=== PATIENT | male | born 1955 | race Caucasian/White ===

== ENCOUNTER 2016-07-07 12:57 | Emergency (ER) | payer MEDICARE ==
[~2016-07-07] VITALS: Ht 195.6 cm; Wt 131.5 kg
[2016-07-07] MEDS ORDERED: IV NORMAL SALINE 1000ML BAG 1,000 ML IV SCH (13:23)
[2016-07-07] MEDS ORDERED: LOSA50TA6 PO (13:25)
[2016-07-07] MEDS ORDERED: ALPR1TAB2 PO (13:25)
[2016-07-07] MEDS ORDERED: FENO145T2 PO (13:25)
[2016-07-07] MEDS ORDERED: BUPR1FIL SL (13:25)
[2016-07-07] MEDS ORDERED: CLOP75TA PO (13:25)
[2016-07-07] MEDS ORDERED: DESV50TA PO (13:25)
[2016-07-07] MEDS ORDERED: NIFE90TA PO (13:25)
[2016-07-07] MEDS ORDERED: SIMV40TA3 PO (13:25)
[2016-07-07] MEDS ORDERED: 0.9 % SODIUM CHLORIDE 10 ML DISP.SYRIN. IV PRN (13:30)
[2016-07-07] MEDS ORDERED: ONDANSETRON PF 4 MG/2 ML VIAL. IV ONE (13:30)
[2016-07-07 13:37] LABS: BILIRUBIN,URINE NEGATIVE (NEG); GLUCOSE,URINE NEGATIVE (NEG); NITRITE,URINE NEGATIVE (NEG); PH,URINE 6.5; PROTEIN,URINE 30 mg/dL (NEG-TRACE); UROBILINOGEN,URINE 0.2 mg/dL (0.2 mg/dL)
[2016-07-07 13:41] LABS: BASO # 0.1 x10^3/uL (0.0-0.2); BASO % 1 % (0-3); EOS % 1 % (0-3); HEMATOCRIT 44.5 % (39.0-53.0); HEMOGLOBIN 15.4 g/dL (13.0-17.5); LYMPH # 0.9 x10^3/uL (1.0-4.8); LYMPH % 15 % (24-48); MEAN CORPUSCULAR HEMOGLOBIN 31 pg (25-35); MEAN CORPUSCULAR HGB CONC 35 g/dL (31-37); MEAN CORPUSCULAR VOLUME 90 fL (79-100); MONO % 5 % (0-9); NEUT % 78 % (31-73); PLATELET COUNT 268 x10^3/uL (140-400); RED BLOOD COUNT 4.94 x10^6/uL (4.30-5.70); RED CELL DISTRIBUTION WIDTH 13.6 % (11.5-14.5); WHITE BLOOD COUNT 5.9 x10^3/uL (4.0-11.0)
[2016-07-07 13:49] LABS: BACTERIA,URINE 0 /HPF (0-FEW); RBC,URINE OCC /HPF (0-2)
[2016-07-07 13:51] LABS: CALCIUM 9.5 mg/dL (8.5-10.1); CREATININE 1.1 mg/dL (0.7-1.3); GFR 68.3; POTASSIUM 3.6 mmol/L (3.5-5.1)
--- NOTE | 2016-07-07 13:54 | PHYS DOC ---
Past Medical History Past Medical History: Anxiety, CAD, High Cholesterol, Hypertension Past Surgical History: Hip Replacement, Tonsillectomy, Other Additional Past Surgical Histo: cardiac cath with stents, bilat carotid endarterectomy with stent Alcohol Use: Heavy Additional Information: drinks 2-3 martini or vodka drinks daily Drug Use: None Adult General Chief Complaint Chief Complaint: ABDOMINAL PAIN HPI HPI Patient is a pleasant 60-year-old male with history of hypertension, hyperlipidemia and known coronary artery disease with prior endarterectomy 2 who presents with right lower quadrant pain is been going on for 4 weeks. He came in today because after taking a couple coughing he had a significant episode of nausea with retching no vomiting no diarrhea no constipation fevers chills UTI symptoms but the pain in his right lower abdomen got progressively worse. He's never had anything quite like this before. No. He was seen by his internal medicine physician Dr. JOSELO REDDING earlier this month and cleared by cardiology. He's not had any trauma, denies any recent travel outside the country, recent robotic use. Patient says the pain is worse with wall movement of his abdomen. He does not complain of any change with food or aliments. He denies any fevers or chills this time. He also denies any sick contacts. Pain is described as a dull ache throbbing deeper in the tissues that is not moving. It is not radiating to his back chest or shoulders. Review of Systems Review of Systems Constitutional: Denies fever or chills [] Eyes: Denies change in visual acuity, redness, or eye pain [] HENT: Denies nasal congestion or sore throat [] Respiratory: Denies cough or shortness of breath [] Cardiovascular: No additional information not addressed in HPI [] GI: Complains of of nausea and abdominal pain and retching without diarrhea or constipation. : Denies dysuria or hematuria [] Musculoskeletal: Denies back pain or joint pain [] Integument: Denies rash or skin lesions [] Neurologic: Denies headache, focal weakness or sensory changes [] Endocrine: Denies polyuria or polydipsia [] Current Medications Current Medications Current Medications Medications (Trade) Dose Ordered Sig/Nicolás Start Time Stop Time Status Last Admin Dose Admin Hydromorphone HCl (Dilaudid) 1 mg PRN Q15MIN PRN 07/07/16 13:30 07/08/16 13:29 07/07/16 14:01 1 MG Info (Do NOT chart on this entry -- for MONITORING) 1 each PRN DAILY PRN 07/07/16 14:15 07/09/16 14:14 Iohexol (Omnipaque 300 Mg/ml) 75 ml 1X ONCE 07/07/16 14:00 07/07/16 14:02 DC 07/07/16 14:05 75 ML Ondansetron HCl (Zofran) 4 mg 1X ONCE 07/07/16 13:30 07/07/16 13:31 DC 07/07/16 14:00 4 MG Sodium Chloride (Normal Saline Flush) 10 ml QSHIFT PRN 07/07/16 13:30 07/07/16 14:01 10 ML Allergies Allergies Allergies Coded Allergies Type Severity Reaction Last Updated Verified No Known Drug Allergies 07/07/16 No Physical Exam Physical Exam Constitutional: Well developed, well nourished, no acute distress, non-toxic appearance. [] HENT: Normocephalic, atraumatic, bilateral external ears normal, oropharynx moist, no oral exudates, nose normal. [] Eyes: PERRLA, EOMI, conjunctiva normal, no discharge. [] Neck: Normal range of motion, no tenderness, supple, no stridor. [] Cardiovascular:Heart rate regular rhythm, no murmur [] Lungs & Thorax: Bilateral breath sounds clear to auscultation [] Abdomen: Patient has marked tenderness to right lower quadrant with voluntary guarding no rebound or organomegaly. There is no pulsatile mass normal active bowel sounds. Skin: Warm, dry, no erythema, no rash. [] Extremities: No tenderness, no cyanosis, no clubbing, ROM intact, no edema. [] Neurologic: Alert and oriented X 3, normal motor function, normal sensory function, no focal deficits noted. [] Psychologic: Affect normal, judgement normal, mood normal. [] Current Patient Data Vital Signs Vital Signs Date Time Temp Pulse Resp B/P (MAP) Pulse Ox O2 Delivery O2 Flow Rate FiO2 07/07/16 14:01 Room Air 07/07/16 13:11 98.8 95 12 170/100 (123) 96 98.8 Lab Values Laboratory Tests Test 07/07/16 13:14 07/07/16 13:25 Urine Collection Type Unknown Urine Color Deloris Urine Clarity Clear Urine pH 6.5 Urine Specific [place] 1.020 Urine Protein 30 mg/dL (NEG-TRACE) Urine Glucose (UA) Negative mg/dL (NEG) Urine Ketones (Stick) Trace mg/dL (NEG) Urine Blood Negative (NEG) Urine Nitrite Negative (NEG) Urine Bilirubin Negative (NEG) Urine Urobilinogen Dipstick 0.2 mg/dL (0.2 mg/dL) Urine Leukocyte Esterase Negative (NEG) Urine RBC Occ /HPF (0-2) Urine WBC 5-10 /HPF (0-4) Urine Bacteria 0 /HPF (0-FEW) Urine Hyaline Casts Many /HPF Urine Mucus Marked /LPF White Blood Count 5.9 x10^3/uL (4.0-11.0) Red Blood Count 4.94 x10^6/uL (4.30-5.70) Hemoglobin 15.4 g/dL (13.0-17.5) Hematocrit 44.5 % (39.0-53.0) Mean Corpuscular Volume 90 fL (79-100) Mean Corpuscular Hemoglobin 31 pg (25-35) Mean Corpuscular Hemoglobin Concent 35 g/dL (31-37) Red Cell Distribution Width 13.6 % (11.5-14.5) Platelet Count 268 x10^3/uL (140-400) Neutrophils (%) (Auto) 78 % (31-73) H Lymphocytes (%) (Auto) 15 % (24-48) L Monocytes (%) (Auto) 5 % (0-9) Eosinophils (%) (Auto) 1 % (0-3) Basophils (%) (Auto) 1 % (0-3) Neutrophils # (Auto) 4.6 x10^3uL (1.8-7.7) Lymphocytes # (Auto) 0.9 x10^3/uL (1.0-4.8) L Monocytes # (Auto) 0.3 x10^3/uL (0.0-1.1) Eosinophils # (Auto) 0.0 x10^3/uL (0.0-0.7) Basophils # (Auto) 0.1 x10^3/uL (0.0-0.2) Sodium Level 139 mmol/L (136-145) Potassium Level 3.6 mmol/L (3.5-5.1) Chloride Level 101 mmol/L (98-107) Carbon Dioxide Level 28 mmol/L (21-32) Anion Gap 10 (6-14) Blood Urea Nitrogen 10 mg/dL (8-26) Creatinine 1.1 mg/dL (0.7-1.3) Estimated GFR (Cockcroft-Gault) 68.3 BUN/Creatinine Ratio 9 (6-20) Glucose Level 119 mg/dL (70-99) H Calcium Level 9.5 mg/dL (8.5-10.1) Total Bilirubin 0.8 mg/dL (0.2-1.0) Aspartate Amino Transferase (AST) 36 U/L (15-37) Alanine Aminotransferase (ALT) 50 U/L (16-63) Alkaline Phosphatase 86 U/L (46-116) Creatine Kinase 156 U/L (39-308) Creatine Kinase MB (Mass) 0.8 ng/mL (0.0-3.6) Creatine Kinase MB Relative Index 0.5 % (0-4) Troponin I Quantitative < 0.017 ng/mL (0.000-0.055) Total Protein 8.1 g/dL (6.4-8.2) Albumin 4.3 g/dL (3.4-5.0) Albumin/Globulin Ratio 1.1 (1.0-1.7) Lipase 80 U/L (73-393) Laboratory Tests 07/07/16 13:25 Laboratory Tests 07/07/16 13:25 EKG EKG KG timed 3:29 PM temperatures heart rate of 83 normal sinus rhythm with a prolonged SC interval of 214 first degree AV block noted. There is also evidence of a) right frontal RR prime in V1 and V2. Patient has abnormal EKG with T-wave inversions laterally and inferiorly consistent with old ischemia. [] Radiology/Procedures Radiology/Procedures [] [address] [place] [address] IMAGING REPORT Signed PATIENT: ROSEMARIE PRASAD ACCOUNT: [id number] : 1955 LOCATION: ER AGE: 60 SEX: M EXAM STATUS: REG ER ORD. PHYSICIAN: LEI LINARES MD REASON: rlq ab pain PROCEDURE: CT ABD PELV W/ IV CONTRST ONLY CT abdomen and pelvis with IV contrast History: Right lower quadrant pain. Comparison: None. Technique: After administration of intravenous contrast, 75 mL Omnipaque 300, helical CT of the abdomen and pelvis was performed from the lung bases through the ischial tuberosities. Axial, sagittal, and coronal reconstructions were obtained. One or more of the following individualized dose reduction techniques were utilized for the study: Automated exposure control Adjustment of mA and/or kV according to patient's size Use of iterative reconstruction technique. Findings: Evaluation of enteric structures may be limited by lack of oral contrast. There is also streak artifact emanating from patient's bilateral hip arthroplasties, limiting evaluation lower pelvis. Fatty liver disease is seen. Spleen, pancreas, gallbladder, and bilateral adrenal glands are unremarkable. Bilateral kidneys enhance symmetrically. There is no evidence of bowel obstruction. No free air or free fluid is identified in the abdomen or pelvis. Appendix appears within normal limits. Urinary bladder is unremarkable. Colonic diverticulosis is noted, but no diverticulitis is appreciated. Infrarenal abdominal aortic aneurysm is seen. At maximum axial size, AP dimension is 3.7 cm and transverse dimension is 3.4 cm. Calcified and noncalcified atherosclerotic plaquing is seen involving the aorta and iliac vessels. Impression: 1. No acute abnormality identified in the abdomen or pelvis. 2. Infrarenal abdominal aortic aneurysm measuring 3.7 cm in AP dimension x 3.4 cm in transverse dimension. DICTATED and SIGNED BY: JAVIER GRAMAJO MD DATE: 07/07/16 2295 CC: LEI LINARES MD; NEIDA GOMEZ MD ~ Course & Med Decision Making Course & Med Decision Making Pertinent Labs and Imaging studies reviewed. (See chart for details) the patient 's nursing notes, vital signs and physical exam as well as history patient with chronic abdominal pain the right lower quadrant with no obvious signs of appendicitis today no white count elevated troponin CT abdomen and pelvis demonstrates no acute surgical issue going on the abdomen that would require intervention at this time. He does have an noted abdominal aneurysm measuring 3.7 cm at this time given the fact no chest pain this patient is aware of this particular finding and his prior history of CAD endarterectomy I will follow up with his vascular surgeon to watch this particular aneurysm. At this time patient be given the diagnosis of abdominal pain of unclear etiology. We'll have him follow-up with his primary care doctor referral back to the vascular surgeon given precautions. Impression abdominal pain unclear etiology, incidental abdominal aneurysm measuring 3.7 cm. disposition PCP follow-up next 12-24 hours with referral to vascular surgery. [] Dragon Disclaimer Dragon Disclaimer This electronic medical record was generated, in whole or in part, using a voice recognition dictation system. Departure Departure Impression: Primary Impression: Abdominal pain Additional Impressions: Abdominal aortic aneurysm (AAA) 3.0 cm to 5.5 cm in diameter in male Abdominal aortic aneurysm (AAA) without rupture Disposition: HOME, SELF-CARE Condition: IMPROVED Referrals: NEIDA GOMEZ MD (PCP) Patient Instructions: Abdominal Aortic Aneurysm, Abdominal Pain (Nonspecific) Additional Instructions: Please return for any new or increasing symptoms especially localized in the right lower quadrant. There is no obvious evidence of appendicitis at this time today given year duration of symptoms this does not mean that Develop in the future. I would advise a follow-up with her primary care doctor with referral to vascular surgery to watch her abdominal aneurysm although it small at 3.7 cm it is to be watched very carefully. Problem Qualifiers LEI LINARES MD July 07, 2016 13:54
[2016-07-07 13:57] LABS: ALBUMIN 4.3 g/dL (3.4-5.0); ALBUMIN/GLOBULIN RATIO 1.1 (1.0-1.7); TOTAL BILIRUBIN 0.8 mg/dL (0.2-1.0); TOTAL PROTEIN 8.1 g/dL (6.4-8.2)
--- NOTE | 2016-07-07 13:57 | EKG ---
[facility] [address] [place] [address] Test Date: 2016-07-07 Test Time: 13:29:29 Pat Name: ROSEMARIE PRASAD Department: Room: Gender: M [employer]: : 1955 Requested By: LEI LINARES Order Number: [id number] Reading MD: Slim Alcocer Measurements Intervals [place] Rate: 83 P: 54 NE: 214 QRS: 74 QRSD: 100 T: 28 QT: 368 QTc: 433 Interpretive Statements SINUS RHYTHM PROLONGED NE INTERVAL NON-SPECIFIC ST/T CHANGES Electronically Signed On 07-11-2016 12:49:37 CDT by Slim Alcocer
[2016-07-07] MEDS ORDERED: IOHEXOL 300 MG/ML 75 ML VIAL IV ONE (14:00)
[2016-07-07] MEDS: HYDROmorphone 2 MG/ML VIAL IV/SQ PRN ×2 (14:01→15:19)
[2016-07-07 14:05] LABS: CKMB MASS 0.8 ng/mL (0.0-3.6)
[2016-07-07] MEDS ORDERED: CONTRAST GIVEN MC PRN (14:15)
--- NOTE | 2016-07-07 14:28 | RAD ---
CT abdomen and pelvis with IV contrast History: Right lower quadrant pain. Comparison: None. Technique: After administration of intravenous contrast, 75 mL Omnipaque 300, helical CT of the abdomen and pelvis was performed from the lung bases through the ischial tuberosities. Axial, sagittal, and coronal reconstructions were obtained. One or more of the following individualized dose reduction techniques were utilized for the study: Automated exposure control Adjustment of mA and/or kV according to patient's size Use of iterative reconstruction technique. Findings: Evaluation of enteric structures may be limited by lack of oral contrast. There is also streak artifact emanating from patient's bilateral hip arthroplasties, limiting evaluation lower pelvis. Fatty liver disease is seen. Spleen, pancreas, gallbladder, and bilateral adrenal glands are unremarkable. Bilateral kidneys enhance symmetrically. There is no evidence of bowel obstruction. No free air or free fluid is identified in the abdomen or pelvis. Appendix appears within normal limits. Urinary bladder is unremarkable. Colonic diverticulosis is noted, but no diverticulitis is appreciated. Infrarenal abdominal aortic aneurysm is seen. At maximum axial size, AP dimension is 3.7 cm and transverse dimension is 3.4 cm. Calcified and noncalcified atherosclerotic plaquing is seen involving the aorta and iliac vessels. Impression: 1. No acute abnormality identified in the abdomen or pelvis. 2. Infrarenal abdominal aortic aneurysm measuring 3.7 cm in AP dimension x 3.4 cm in transverse dimension.
[2016-07-07 15:03] VITALS: BP 181/90
== END 2016-07-07 15:28 | disposition home or self-care (01) ==
LOC: ER 12:57
DX: R10.31 Right lower quadrant pain (principal); I71.4 Abdominal aortic aneurysm, without rupture; R11.2 Nausea with vomiting, unspecified; F41.9 Anxiety disorder, unspecified; I25.10 Atherosclerotic heart disease of native coronary artery without angina pectoris; E78.00 Pure hypercholesterolemia, unspecified; I10 Essential (primary) hypertension; Z90.89 Acquired absence of other organs; Z95.1 Presence of aortocoronary bypass graft
CPT/HCPCS: 36415; 74177; 80053; 81001; 82553; 83690; 84484; 85027; 87086; 93005; 96361; 96374; 96375; 96376; 99285; J1170; J2405; J7030; Q9967

== ENCOUNTER → 2016-08-26 | Outpatient (CLI) | payer MEDICARE ==
[~2016-08-26] VITALS: Ht 195.6 cm; Wt 127.9 kg
[~2016-08-26] MED LIST: ALPR1TAB2 PO; BUPR1FIL SL; CLOP75TA PO; DESV50TA PO; FENO145T2 PO; LOSA50TA6 PO; NIFE90TA PO; NORMAL SALINE IV ONE; SIMV40TA3 PO; SINCALIDE IV ONE
--- NOTE | 2016-08-26 14:08 | RAD ---
Hepatobiliary scan 08/26/2016 Indication: Upper abdominal pain since May, Discussion: Imaging over the abdomen was performed following the administration of 5.5 mCi of technetium 99m labeled Choletec. After filling of the gallbladder 2.6 mcg of CCK was administered and imaging of the abdomen was continued. There is prompt clearance of radiotracer from the blood pool. Normal uptake within the liver and proximal biliary tree is noted. Normal filling of the gallbladder is noted. Following the administration of CCK radiotracer seen emptying into the biliary tree and small bowel. Gallbladder ejection fraction is measured at 50.3%. (Normal gallbladder ejection fraction is anything greater than 35%) Impression: No evidence of cholecystitis. Gallbladder ejection fraction is within normal limits.
== END ==
LOC: NM 11:41
PROVIDERS: ATTEND Physician Assistant
DX: R10.11 Right upper quadrant pain (principal)
CPT/HCPCS: 78226; 96374; 96375; A9537; J2805

== ENCOUNTER 2017-01-07 18:36 | Emergency (ER) | payer MEDICARE ==
[~2017-01-07] VITALS: Ht 195.6 cm; Wt 126.7 kg
[~2017-01-07 18:36] MED LIST changes: -NORMAL SALINE IV ONE; -SINCALIDE IV ONE
[2017-01-07] MEDS ORDERED: PIRO20CA2 PO (19:34)
[2017-01-07] MEDS ORDERED: METH-37 PO (19:34)
[2017-01-07] MEDS ORDERED: IV NORMAL SALINE 1000ML BAG 1,000 ML IV ONE (20:00)
[2017-01-07 20:11] LABS: BASO # 0.1 x10^3/uL (0.0-0.2); BASO % 1 % (0-3); EOS % 0 % (0-3); HEMATOCRIT 45.4 % (39.0-53.0); HEMOGLOBIN 15.2 g/dL (13.0-17.5); LYMPH # 0.9 x10^3/uL (1.0-4.8); LYMPH % 12 % (24-48); MEAN CORPUSCULAR HEMOGLOBIN 32 pg (25-35); MEAN CORPUSCULAR HGB CONC 34 g/dL (31-37); MEAN CORPUSCULAR VOLUME 94 fL (79-100); MONO % 6 % (0-9); NEUT % 80 % (31-73); PLATELET COUNT 272 x10^3/uL (140-400); RED BLOOD COUNT 4.82 x10^6/uL (4.30-5.70); RED CELL DISTRIBUTION WIDTH 13.7 % (11.5-14.5); WHITE BLOOD COUNT 7.6 x10^3/uL (4.0-11.0)
[2017-01-07] MEDS ORDERED: CONTRAST GIVEN MC PRN (20:15)
[2017-01-07] MEDS ORDERED: IOHEXOL 300 MG/ML 100ML VIAL. IV ONE (20:15)
[2017-01-07] MEDS: fentaNYL PF VIAL 100 MCG/2 ML VIAL IV PRN ×2 (20:18→21:31)
[2017-01-07 20:31] LABS: BILIRUBIN,URINE SMALL (NEG); GLUCOSE,URINE NEGATIVE (NEG); NITRITE,URINE NEGATIVE (NEG); PH,URINE 7.5; PROTEIN,URINE NEGATIVE (NEG-TRACE)
[2017-01-07 20:41] LABS: BACTERIA,URINE 0 /HPF (0-FEW); RBC,URINE OCC /HPF (0-2); SQUAMOUS EPITHELIAL CELL,UR FEW /LPF; WBC,URINE 0 /HPF (0-4)
[2017-01-07 20:53] LABS: CALCIUM 9.1 mg/dL (8.5-10.1); CREATININE 1.1 mg/dL (0.7-1.3); GFR 68.1; POTASSIUM 3.5 mmol/L (3.5-5.1)
[2017-01-07 21:00] LABS: ALBUMIN 4.3 g/dL (3.4-5.0); ALBUMIN/GLOBULIN RATIO 1.2 (1.0-1.7); TOTAL BILIRUBIN 0.7 mg/dL (0.2-1.0); TOTAL PROTEIN 7.8 g/dL (6.4-8.2)
--- NOTE | 2017-01-07 22:25 | RAD ---
CT maxillofacial with contrast History: Left jaw pain Axial helical images of the face orbits and mandible were obtained after administration of 70 mL of IV Omni 300 contrast. Axial, sagittal and coronal reconstruction was performed. The nasal septum is mostly midline. The ostiomeatal complexes are narrow but patent. The paranasal sinuses are clear. Irregularity of the nasal ala suggests old nasal bone fractures. The orbits appear normal. Impression: No acute findings. PQRS Compliance Statement: One or more of the following individualized dose reduction techniques were utilized for this examination: 1. Automated exposure control 2. Adjustment of the mA and/or kV according to patient size 3. Use of iterative reconstruction technique Electronically signed by: Aayush Rios III, MD (01/07/2017 10:22 PM) [facility]
[2017-01-08] MEDS ORDERED: fentaNYL PF VIAL 100 MCG/2 ML VIAL IV ONE (00:30)
[2017-01-08] MEDS ORDERED: HYDR-2758 PO (00:46)
--- NOTE | 2017-01-08 00:47 | PHYS DOC ---
Past Medical History Past Medical History: Anxiety, CAD, High Cholesterol, Hypertension, Other Additional Past Medical Histor: AAA (3.5cm) Past Surgical History: Hip Replacement, Tonsillectomy, Other Additional Past Surgical Histo: cardiac cath with stents, bilat carotid endarterectomy with stent Alcohol Use: Heavy Drug Use: None Adult General Chief Complaint Chief Complaint: DENTAL PROBLEM HPI HPI Patient is a 61 year old man, history of hypertension, remote history of drug and alcohol abuse, who presents to the emergency department with a complaint of left-sided jaw pain. Patient states that he had a root canal performed a few days after Thanksgiving, states that since that time he is experiencing increasing pain and spasm on the left side of his jaw, limiting his ability to open his mouth. He denies any fevers or chills, any swelling in the throat or mouth, any drainage in the mouth, any neck pain, headache, facial swelling. He states that he has spoken to both his meter engineer performing procedure, and was evaluated by status today. He states his meter engineer believe that "it may be a slipped disc inside the jaw joint". He was given Robaxin by his meter engineer, and today was given hydrocodone by his dentist which she states is not helping. Patient does take Xanax at home at baseline. He denies any other injuries, or complaints. No difficulties with swallowing or breathing or pain in the back or throat or mouth, states he simply cannot open his mouth any wider than one finger. He states it is getting worse, he states he spoke to his dentist who said that if he needed to come to the emergency department to be further evaluated to contact him via telephone. He did have x-rays performed today, he states that they did not see anything obvious on these films. Review of Systems Review of Systems Constitutional: Denies fever or chills [] Eyes: Denies change in visual acuity, redness, or eye pain [] HENT: Denies nasal congestion or sore throat []pain in the left jaw, difficult to the opening the mouth. Respiratory: Denies cough or shortness of breath [] Cardiovascular: No additional information not addressed in HPI [] GI: Denies abdominal pain, nausea, vomiting, bloody stools or diarrhea [] : Denies dysuria or hematuria [] Musculoskeletal: Denies back pain or joint pain [] Integument: Denies rash or skin lesions [] Neurologic: Denies headache, focal weakness or sensory changes [] Endocrine: Denies polyuria or polydipsia [] All other systems were reviewed and found to be within normal limits, except as documented in this note. Current Medications Current Medications Current Medications Medications (Trade) Dose Ordered Sig/Nicolás Start Time Stop Time Status Last Admin Dose Admin Diazepam (Valium) 5 mg 1X ONCE 01/07/17 21:45 01/07/17 21:46 DC 01/07/17 22:27 5 MG Fentanyl Citrate (Fentanyl 2ml Vial) 50 mcg 1X ONCE 01/08/17 00:30 01/08/17 00:31 DC 01/08/17 00:30 50 MCG Info (Do NOT chart on this entry -- for MONITORING) 1 each PRN DAILY PRN 01/07/17 20:15 01/08/17 02:22 DC Iohexol (Omnipaque 300 Mg/ml) 75 ml 1X ONCE 01/07/17 20:15 01/07/17 20:16 DC 01/07/17 09:55 75 ML Nifedipine (Procardia Xl) 90 mg ONCE ONCE 01/08/17 00:30 01/08/17 00:31 DC 01/08/17 00:41 90 MG Sodium Chloride 1,000 ml @ 1,000 mls/hr 1X ONCE 01/07/17 20:00 01/07/17 20:59 DC 01/07/17 20:15 1,000 MLS/HR Allergies Allergies Allergies Coded Allergies Type Severity Reaction Last Updated Verified No Known Drug Allergies 07/07/16 No Physical Exam Physical Exam Constitutional: Well developed, well nourished, no acute distress, non-toxic appearance. [] HENT: Normocephalic, atraumatic, bilateral external ears normal, oropharynx moist, no oral exudates, nose normal. [Patient is able to open his mouth about one finger width, visualized soft tissues are unremarkable, no evidence of abscess formation, induration, no tenderness along the palpable area of the jaw or gums when fingers extended into the mouth, visualized area of the oropharynx is clear.] Eyes: PERRLA, EOMI, conjunctiva normal, no discharge. [] Neck: Normal range of motion, no tenderness, supple, no stridor. [] Cardiovascular:Heart rate regular rhythm, no murmur , S1, S2, no rubs or gallops.[] Lungs & Thorax: Bilateral breath sounds clear to auscultation , no wheezing, rhonchi, rales. No chest wall crepitus or tenderness.[] Abdomen: Bowel sounds normal, soft, no tenderness, no masses, no pulsatile masses. [] Skin: Warm, dry, no erythema, no rash. [] Back: No tenderness, no CVA tenderness. [] Extremities: No tenderness, no cyanosis, no clubbing, ROM intact, no edema. [] Neurologic: Alert and oriented X 3, normal motor function, normal sensory function, no focal deficits noted. [] Psychologic: Affect normal, judgement normal, mood normal. [] Current Patient Data Vital Signs Vital Signs Date Time Temp Pulse Resp B/P (MAP) Pulse Ox O2 Delivery O2 Flow Rate FiO2 01/08/17 01:30 76 19 202/91 (128) 96 Room Air 01/07/17 19:18 98.2 98.2 Lab Values Laboratory Tests Test 01/07/17 18:10 01/07/17 20:00 Urine Collection Type Unknown Urine Color Dk yellow Urine Clarity Clear Urine pH 7.5 Urine Specific [place] >=1.030 Urine Protein Negative mg/dL (NEG-TRACE) Urine Glucose (UA) Negative mg/dL (NEG) Urine Ketones (Stick) Trace mg/dL (NEG) Urine Blood Negative (NEG) Urine Nitrite Negative (NEG) Urine Bilirubin Small (NEG) Urine Urobilinogen Dipstick 1.0 mg/dL (0.2 mg/dL) Urine Leukocyte Esterase Negative (NEG) Urine RBC Occ /HPF (0-2) Urine WBC 0 /HPF (0-4) Urine Squamous Epithelial Cells Few /LPF Urine Bacteria 0 /HPF (0-FEW) Urine Hyaline Casts Few /HPF Urine Mucus Mod /LPF White Blood Count 7.6 x10^3/uL (4.0-11.0) Red Blood Count 4.82 x10^6/uL (4.30-5.70) Hemoglobin 15.2 g/dL (13.0-17.5) Hematocrit 45.4 % (39.0-53.0) Mean Corpuscular Volume 94 fL (79-100) Mean Corpuscular Hemoglobin 32 pg (25-35) Mean Corpuscular Hemoglobin Concent 34 g/dL (31-37) Red Cell Distribution Width 13.7 % (11.5-14.5) Platelet Count 272 x10^3/uL (140-400) Neutrophils (%) (Auto) 80 % (31-73) H Lymphocytes (%) (Auto) 12 % (24-48) L Monocytes (%) (Auto) 6 % (0-9) Eosinophils (%) (Auto) 0 % (0-3) Basophils (%) (Auto) 1 % (0-3) Neutrophils # (Auto) 6.1 x10^3uL (1.8-7.7) Lymphocytes # (Auto) 0.9 x10^3/uL (1.0-4.8) L Monocytes # (Auto) 0.4 x10^3/uL (0.0-1.1) Eosinophils # (Auto) 0.0 x10^3/uL (0.0-0.7) Basophils # (Auto) 0.1 x10^3/uL (0.0-0.2) Sodium Level 142 mmol/L (136-145) Potassium Level 3.5 mmol/L (3.5-5.1) Chloride Level 104 mmol/L (98-107) Carbon Dioxide Level 25 mmol/L (21-32) Anion Gap 13 (6-14) Blood Urea Nitrogen 11 mg/dL (8-26) Creatinine 1.1 mg/dL (0.7-1.3) Estimated GFR (Cockcroft-Gault) 68.1 BUN/Creatinine Ratio 10 (6-20) Glucose Level 115 mg/dL (70-99) H Calcium Level 9.1 mg/dL (8.5-10.1) Total Bilirubin 0.7 mg/dL (0.2-1.0) Aspartate Amino Transferase (AST) 51 U/L (15-37) H Alanine Aminotransferase (ALT) 67 U/L (16-63) H Alkaline Phosphatase 73 U/L (46-116) Total Protein 7.8 g/dL (6.4-8.2) Albumin 4.3 g/dL (3.4-5.0) Albumin/Globulin Ratio 1.2 (1.0-1.7) Laboratory Tests 01/07/17 20:00 Laboratory Tests 01/07/17 20:00 EKG EKG Not indicated. Radiology/Procedures Radiology/Procedures [][facility] [address] [place], [place] [id number] IMAGING REPORT Signed PATIENT: ROSEMARIE PRASAD ACCOUNT: [id number] : 1955 LOCATION: ER AGE: 61 SEX: M EXAM STATUS: REG ER ORD. PHYSICIAN: ALEX BERMUDEZ DO REASON: L jaw pain/trismus status post root canal PROCEDURE: CT MAXILLOFACIAL W/CONTRAST CT maxillofacial with contrast History: Left jaw pain Axial helical images of the face orbits and mandible were obtained after administration of 70 mL of IV Omni 300 contrast. Axial, sagittal and coronal reconstruction was performed. The nasal septum is mostly midline. The ostiomeatal complexes are narrow but patent. The paranasal sinuses are clear. Irregularity of the nasal ala suggests old nasal bone fractures. The orbits appear normal. Impression: No acute findings. PQRS Compliance Statement: One or more of the following individualized dose reduction techniques were utilized for this examination: 1. Automated exposure control 2. Adjustment of the mA and/or kV according to patient size 3. Use of iterative reconstruction technique Electronically signed by: Lance Bourne III, MD (01/07/2017 10:22 PM) [facility] DICTATED and SIGNED BY: LANCE BOURNE III, MD DATE: 01/07/172213 CC: NEIDA GOMEZ MD; ALEX BERMUDEZ DO ~ Course & Med Decision Making Course & Med Decision Making Pertinent Labs and Imaging studies reviewed. (See chart for details) Patient without evidence of infection or other concerning findings examination, although he is unable to open his mouth more than one finger, normal speech and syntax is preserved without evidence of other concerning findings. However, based on patient's reports of pain and inability to open his mouth, with history of surgical intervention, CT of the maxillofacial with contrast obtained after discussion with patient of risk versus benefit. Patient also received laboratory studies, states he is having some difficulty with eating as concern is occasional status. Patient's laboratory studies not reveal any acutely concerning finding, we did have trace ketones noted in the urine, electrolytes and other findings were unremarkable, no evidence of infection noted and laboratory studies or imaging. No evidence of bony abnormality. Valium and fentanyl were stacker tender the patient in the ED, patient states he continues to have discomfort. Noted to have increasing blood pressure in the ED , is a history of hypertension, has not taken his home nifedipine, patient was ordered his evening dose of nifedipine, 90 mg in the ED. Patient denies any other symptoms or complaints at this time. I did attempt to speak with his dentist, Dr. Monique, messages were left, but is unable to reach him. I was able to speak to the patient's meter engineer, Dr. Sky, who states that he is evaluated the patient, and does not have additional recommendations at this time , he states continuing the anti-inflammatories, pain medication, and muscle relaxers as stated would be his only recommendations, also states that are thought of having the patient follow-up with oral maxillofacial surgeon would be beneficial this point as the patient has not responded to the other interventions. Patient awaiting additional pain medication, and his nifedipine at time of sign out to Dr. Vance, who accepted this patient for follow-up and disposition. Pharmacy called stating he is on Suboxone and was given [place] therefore I switched him to 50 mg every 8 hours of tramadol No. 8 and told not to fill his [place] tablets. Adavied 01/08/17 13:05 Anyi Disclaimer Anyi Disclaimer This electronic medical record was generated, in whole or in part, using a voice recognition dictation system. Departure Impression: Primary Impression: Jaw pain Additional Impressions: Trismus Hypertension Disposition: 01 HOME, SELF-CARE Condition: STABLE Referrals: NEIDA GOMEZ MD (PCP) NIMCO KEARNS DMD Patient Instructions: Jaw, Range of Motion Exercises, [id number] Additional Instructions: Thank you for allowing us to participate in your care today. Your blood pressure is elevated here in the emergency department today. You have received blood pressure medication here. Take your blood pressure medication as prescribed by your doctor and follow up with their primary care doctor tomorrow for chronic blood pressure management. I recommend he follow-up with your dentist tomorrow. It is likely that he might refer you to an oral maxillofacial surgeon or a specialist. I have given the contact information for Dr. Kearns in oral maxillofacial surgeon which he can follow-up with by make an appointment tomorrow or the next day. If for some reason you're unable to get into this doctor's office I recommend you return to the emergency department for transfer for oral maxillofacial surgery consultation. Call your Primary Doctor tomorrow and inform them of your visit today. If you do not have a primary care provider you can ask for a list of our primary care providers. Return to the emergency department you have any new or concerning findings. This should be evaluated by the primary care physician and any necessary consulting services for continued management within a few days after discharge. Return to emergency room if you have any new or concerning symptoms including but not limited to fever, chills, nausea, vomiting, intractable pain, any new rashes, chest pain, shortness of air, uncontrolled bleeding, difficulty breathing, and/or vision loss. You may have been prescribed medication that can change in your level of thinking and ability to operate machinery. These medications include hydrocodone and Ativan. Also, Benadryl has been known to do this as well. Be sure to check with your pharmacist and ask if the medications you've prescribed can affect your level of consciousness. I recommend not operating heavy machinery or driving while on medication such as these. Scripts Hydrocodone Bit/Acetaminophen (HYDROCODONE-APAP 5-325 ) 1 Each Tablet 1 TAB PO PRN Q8HRS Y for SEVERE PAIN, #8 TAB 0 Refills Prov: DUNG VANCE MD 01/08/17 Departure Departure Impression: Primary Impression: Jaw pain Additional Impressions: Trismus Hypertension Disposition: HOME, SELF-CARE Condition: STABLE Referrals: NEIDA GOMEZ MD (PCP) NIMCO KEARNS DMD Patient Instructions: Jaw, Range of Motion Exercises, [id number] Additional Instructions: Thank you for allowing us to participate in your care today. Your blood pressure is elevated here in the emergency department today. You have received blood pressure medication here. Take your blood pressure medication as prescribed by your doctor and follow up with their primary care doctor tomorrow for chronic blood pressure management. I recommend he follow-up with your dentist tomorrow. It is likely that he might refer you to an oral maxillofacial surgeon or a specialist. I have given the contact information for Dr. Kearns in oral maxillofacial surgeon which he can follow-up with by make an appointment tomorrow or the next day. If for some reason you're unable to get into this doctor's office I recommend you return to the emergency department for transfer for oral maxillofacial surgery consultation. Call your Primary Doctor tomorrow and inform them of your visit today. If you do not have a primary care provider you can ask for a list of our primary care providers. Return to the emergency department you have any new or concerning findings. This should be evaluated by the primary care physician and any necessary consulting services for continued management within a few days after discharge. Return to emergency room if you have any new or concerning symptoms including but not limited to fever, chills, nausea, vomiting, intractable pain, any new rashes, chest pain, shortness of air, uncontrolled bleeding, difficulty breathing, and/or vision loss. You may have been prescribed medication that can change in your level of thinking and ability to operate machinery. These medications include hydrocodone and Ativan. Also, Benadryl has been known to do this as well. Be sure to check with your pharmacist and ask if the medications you've prescribed can affect your level of consciousness. I recommend not operating heavy machinery or driving while on medication such as these. Scripts Hydrocodone Bit/Acetaminophen (HYDROCODONE-APAP 5-325 ) 1 Each Tablet 1 TAB PO PRN Q8HRS Y for SEVERE PAIN, #8 TAB 0 Refills Prov: DUNG VANCE MD 01/08/17 Problem Qualifiers DUNG VANCE MD Jan 08, 2017 00:47 ALEX BERMUDEZ DO Jan 08, 2017 00:59 NEFTALI GILLESPIE MD Jan 08, 2017 13:06
[2017-01-08 01:30] VITALS: BP 202/91
== END 2017-01-08 01:45 | disposition home or self-care (01) ==
LOC: ER 18:36
DX: R68.84 Jaw pain (principal); R25.2 Cramp and spasm; I10 Essential (primary) hypertension; F41.9 Anxiety disorder, unspecified; I25.10 Atherosclerotic heart disease of native coronary artery without angina pectoris; E78.00 Pure hypercholesterolemia, unspecified; F10.20 Alcohol dependence, uncomplicated; Z95.5 Presence of coronary angioplasty implant and graft
CPT/HCPCS: 36415; 70487; 80053; 81001; 85025; 96361; 96374; 96375; 96376; 99285; J3010; J3360; J7030; Q9967

== ENCOUNTER 2017-06-26 15:38 | Emergency (ER) | payer MEDICARE ==
[2017-06-26 16:18] LABS: ADD MAN DIFF? NO
[2017-06-26 16:28] LABS: BASO # 0.1 x10^3/uL (0.0-0.2); BASO % 1 % (0-3); EOS # 0.1 x10^3/uL (0.0-0.7); EOS % 2 % (0-3); HEMATOCRIT 44.2 % (39.0-53.0); LYMPH # 0.9 x10^3/uL (1.0-4.8); LYMPH % 15 % (24-48); MEAN CORPUSCULAR HEMOGLOBIN 32 pg (25-35); MEAN CORPUSCULAR HGB CONC 34 g/dL (31-37); MEAN CORPUSCULAR VOLUME 95 fL (79-100); MONO # 0.4 x10^3/uL (0.0-1.1); MONO % 6 % (0-9); NEUT # 4.9 x10^3uL (1.8-7.7); NEUT % 76 % (31-73); PLATELET COUNT 282 x10^3/uL (140-400); RED BLOOD COUNT 4.66 x10^6/uL (4.30-5.70); WHITE BLOOD COUNT 6.5 x10^3/uL (4.0-11.0)
[2017-06-26 16:30] LABS: INR 1.1 (0.8-1.1); PARTIAL THROMBOPLASTIN TIME 30 SEC (24-38); PROTHROMBIN TIME PATIENT 13.4 SEC (11.7-14.0)
[2017-06-26 16:31] LABS: ANION GAP 6 (6-14); BLOOD UREA NITROGEN 10 mg/dL (8-26); BUN/CREATININE RATIO 9 (6-20); CARBON DIOXIDE 31 mmol/L (21-32); CHLORIDE 104 mmol/L (98-107); CREATININE 1.1 mg/dL (0.7-1.3); GFR 68.1; GLUCOSE 95 mg/dL (70-99); POTASSIUM 3.9 mmol/L (3.5-5.1); SODIUM 141 mmol/L (136-145)
[2017-06-26 16:32] LABS: ETHANOL < 10 mg/dL (0-10)
[2017-06-26 16:36] LABS: ALBUMIN 3.7 g/dL (3.4-5.0); ALK PHOS 90 U/L (46-116); ALT (SGPT) 43 U/L (16-63); AST (SGOT) 42 U/L (15-37); LIPASE 94 U/L (73-393); TOTAL BILIRUBIN 0.6 mg/dL (0.2-1.0); TOTAL PROTEIN 7.3 g/dL (6.4-8.2)
[2017-06-26 16:38] LABS: TROPONINI < 0.017 ng/mL (0.000-0.055)
[2017-06-26 16:48] LABS: THYROID STIM HORMONE (TSH) 1.474 uIU/mL (0.358-3.74)
[2017-06-26 16:49] LABS: CKMB MASS < 0.5 ng/mL (0.0-3.6); CREATINE KINASE 72 U/L (39-308)
[2017-06-26 16:49] LABS: NT-PRO BNP 115 pg/mL (0-124)
[2017-06-26] MEDS: IOHEXOL 300 MG/ML 100ML VIAL. IV (16:50)
[2017-06-26] MEDS ORDERED: CONTRAST GIVEN MC (17:00)
[2017-06-26] MEDS: PANTOPRAZOLE IV PUSH 40 MG VIAL. IVP (17:01)
[2017-06-26] MEDS: ONDANSETRON PF 4 MG/2 ML VIAL. IV ×2 (17:01→18:24)
[2017-06-26] MEDS: KETOROLAC 30 MG/ML INJ. IV (17:02)
[2017-06-26] MEDS: IV NORMAL SALINE 1000ML BAG 1,000 ML IV (17:02)
[2017-06-26 17:20] LABS: BILIRUBIN,URINE NEGATIVE (NEG); CLARITY,URINE CLEAR; COLOR,URINE YELLOW; GLUCOSE,URINE NEGATIVE (NEG); NITRITE,URINE NEGATIVE (NEG); PH,URINE 7.5; PROTEIN,URINE NEGATIVE (NEG-TRACE); UROBILINOGEN,URINE 0.2 mg/dL (0.2 mg/dL)
[2017-06-26 17:27] LABS: AMPHETAMINE/METHAMPHETAMINE NEG (NEG); BARBITURATES NEG (NEG); BENZODIAZEPINES POS (NEG); CANNABINOIDS NEG (NEG); COCAINE NEG (NEG); ETHANOL, URINE NEG (NEG); METHADONE NEG (NEG); OPIATES NEG (NEG); PHENCYCLIDINE NEG (NEG)
[2017-06-26 17:32] LABS: BACTERIA,URINE 0 /HPF (0-FEW); RBC,URINE 0 /HPF (0-2); WBC,URINE 0 /HPF (0-4)
[2017-06-26] MEDS: fentaNYL PF VIAL 100 MCG/2 ML VIAL IV (18:25)
== END 2017-06-26 19:03 | disposition home or self-care (01) ==
LOC: ER 19:03
DX: G89.29 Other chronic pain (principal); R10.9 Unspecified abdominal pain; F41.9 Anxiety disorder, unspecified; I25.10 Atherosclerotic heart disease of native coronary artery without angina pectoris; E78.00 Pure hypercholesterolemia, unspecified; I10 Essential (primary) hypertension; F10.10 Alcohol abuse, uncomplicated; Z96.649 Presence of unspecified artificial hip joint
CPT/HCPCS: 36415; 74177; 80053; 80307; 81001; 82553; 83690; 83880; 84443; 84484; 85025; 85610; 85730; 96374; 96375; 96376; 99285-25; C9113; G0480; J1885; J2405; J3010; J7030; Q9967

== ENCOUNTER 2017-09-02 12:38 | Emergency (ER) | payer MEDICARE ==
[2017-09-02] MEDS: CYCLOBENZAPRINE 10 MG TABLET. PO (14:30)
[2017-09-02] MEDS: KETOROLAC 60 MG/2 ML INJ. IM (14:31)
[2017-09-02] MEDS: DEXAMETHASONE SOD PHOS 20 MG/5 ML VIAL. IM (14:31)
== END 2017-09-02 15:18 | disposition home or self-care (01) ==
LOC: ER 15:18
DX: M54.42 Lumbago with sciatica, left side (principal); E78.00 Pure hypercholesterolemia, unspecified; I10 Essential (primary) hypertension; I25.10 Atherosclerotic heart disease of native coronary artery without angina pectoris; Z96.649 Presence of unspecified artificial hip joint; Z95.5 Presence of coronary angioplasty implant and graft
CPT/HCPCS: 72100; 96372; 99284; J1100; J1885

== ENCOUNTER 2017-12-10 23:45 | Emergency (ER) | payer MEDICARE ==
[~2017-12-10] VITALS: Ht 195.6 cm; Wt 136.1 kg
[~2017-12-10 23:45] MED LIST changes: +CYCL10TA2 PO; -FENO145T2 PO; +FENO145T30 PO; +HYDR-2758 PO; +HYDR-971 PO; -LOSA50TA6 PO; +LOSA50TA7 PO; +METH-37 PO; +ONDA4TAB10 SL; +PIRO20CA2 PO
[2017-12-11 00:10] VITALS: BP 178/90
[2017-12-11] MEDS ORDERED: HYDROcodone/APAP 5/325MG 1 TAB TABLET PO ONE (01:00)
[2017-12-11] MEDS ORDERED: KETOROLAC 60 MG/2 ML INJ. IM ONE (01:00)
[2017-12-11] MEDS ORDERED: TETRACAINE 0.5% OPHTH SOLUTION 4ML BOTTLE. OS ONE (01:00)
[2017-12-11] MEDS ORDERED: HYDR-971 PO (01:03)
--- NOTE | 2017-12-11 01:31 | PHYS DOC ---
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) Past Surgical History: Hip Replacement, Tonsillectomy, Other Additional Past Surgical Histo: cardiac cath with stents, bilat carotid endarterectomy with stent Alcohol Use: Heavy Drug Use: None Adult General Chief Complaint Chief Complaint: FACE PAIN HPI HPI Patient is a 62 year old male who is presenting with eye pain and face pain he says he's had this for 1 year it comes and goes he has had every single day for a month and every day he has had flareups were gets really bad tonight it was really bad so he came to the ER for evaluation apparently he has a history of central serous retinopathy and also has a optic nerve issue he doesn't know the exact name of the optic nerve problem but he says it relates to a problem with his optic nerve running through his optic nerve canal incorrectly he just saw a retinal specialist on Tuesday and he was prescribed gabapentin for this facial pain. The pain is described as deep pain initiates in the left eye also feels in the 4 head as well as down into the anterior left cheek and towards the nose area. He has no chest pain at all. He says he try gabapentin but it made him nauseous he wants to throw in the trash. He does endorse some depression but he denies any suicidal ideation at all. He says this pain is keeping him bedbound because of the pain that he has had for a year now. He says at baseline he has blurry vision 20/300 and that is [facility] Review of Systems Review of Systems Constitutional: Denies fever Eyes: Respiratory: Denies cough or shortness of breath [] Cardiovascular: No additional information not addressed in HPI [] Neurologic: Denies , focal weakness or sensory changes [] Endocrine: Denies polyuria or polydipsia [] All other systems were reviewed and found to be within normal limits, except as documented in this note. Current Medications Current Medications Current Medications Medications (Trade) Dose Ordered Sig/Nicolás Start Time Stop Time Status Last Admin Dose Admin Acetaminophen/ Hydrocodone Bitart (Lortab 5/325) 2 tab 1X ONCE 12/11/17 01:00 12/11/17 01:02 DC Ketorolac Tromethamine (Toradol Im) 30 mg 1X ONCE 12/11/17 01:00 12/11/17 01:02 DC 12/11/17 01:07 30 MG Tetracaine HCl (Tetracaine) 1 drop 1X ONCE 12/11/17 01:00 12/11/17 01:02 DC 12/11/17 01:09 1 DROP Allergies Allergies Allergies Coded Allergies Type Severity Reaction Last Updated Verified No Known Drug Allergies 07/07/16 No Physical Exam Physical Exam Constitutional: Well developed, well nourished, no acute distress, non-toxic appearance. [] HENT: Normocephalic, atraumatic, bilateral external ears normal, oropharynx moist, no oral exudates, nose normal. [] Eyes: Pupils are equal round and reactive to light bilaterally extraocular movements are intact. Patient does have a visual field cut on the left that he says is old. Visual acuity in the affected eye is able to count fingers he says that is normal for him. Intraocular pressure is 13 os, he says it was ten the ohter day. there is no temporal artery tenderness. Neck: Normal range of motion, no tenderness, supple, no stridor. [] Pulmonary: Normal respiratory effort no increased work of breathing no obvious chest wall trauma Abdomen: , soft, no tenderness, no masses, no pulsatile masses. [] Skin: Warm, dry, no erythema, no rash. [] Back: No tenderness, no CVA tenderness. [] Extremities: No tenderness, no cyanosis, no clubbing, ROM intact, Neurologic: Alert and oriented X 3, normal motor function, normal sensory function, no focal deficits noted. [] Psychologic: Affect normal, judgement normal, mood normal. [] Current Patient Data Vital Signs Vital Signs Date Time Temp Pulse Resp B/P (MAP) Pulse Ox O2 Delivery O2 Flow Rate FiO2 12/11/17 00:10 98.1 90 16 178/90 (119) 96 Room Air 98.1 EKG EKG [] Radiology/Procedures Radiology/Procedures [] Course & Med Decision Making Course & Med Decision Making Pertinent Labs and Imaging studies reviewed. (See chart for details) This is a 62-year-old male with the above past medical history was having left facial pain really for the last year comes and goes he says it initates in the eye area. he does have some underlying retinal disease apparently. Patient at this point time appears to have a stable exam his visual acuity tells me is poor at baseline that appears unchanged his eye intraocular pressure is normal there is no temporal artery tenderness no signs of infection on the face. I don' t quite know why he is having this facial pain perhaps it is trigeminal neuralgia I think is okay to give him some [place] and I recommended they follow- up with his eye doctor as soon as possible for reevaluation.[] Dragon Disclaimer Dragon Disclaimer This electronic medical record was generated, in whole or in part, using a voice recognition dictation system. Departure Departure Impression: Primary Impression: Elevated blood pressure reading Additional Impression: Headache Disposition: HOME, SELF-CARE Condition: STABLE Patient Instructions: Hypertension Additional Instructions: get your blood pressure checked in one month Scripts Hydrocodone/Apap 5-325 (NORCO 5-325 TABLET) 1 Each Tablet 1-2 EACH PO PRN Q6HRS PRN for PAIN, #15 as needed for pain Prov: JESSICA BARBA MD 12/11/17 Problem Qualifiers JESSICA BARBA MD Dec 11, 2017 01:31
== END 2017-12-11 01:18 | disposition home or self-care (01) ==
LOC: ER 23:45
DX: R51 Headache (principal); H57.12 Ocular pain, left eye; E78.00 Pure hypercholesterolemia, unspecified; I10 Essential (primary) hypertension; I25.10 Atherosclerotic heart disease of native coronary artery without angina pectoris; Z95.0 Presence of cardiac pacemaker; F10.20 Alcohol dependence, uncomplicated; Z86.69 Personal history of other diseases of the nervous system and sense organs
CPT/HCPCS: 96372; 99283; J1885

== ENCOUNTER 2017-12-15 22:26 | Emergency (ER) | payer MEDICARE ==
[~2017-12-15] VITALS: Ht 195.6 cm; Wt 136.1 kg
[2017-12-15 22:40] VITALS: BP 178/87
[2017-12-15] MEDS ORDERED: HYDR-2762 PO ×2 (23:13→23:19)
--- NOTE | 2017-12-15 23:13 | PHYS DOC ---
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 He states currently he does not have anything for pain. He is requesting pain medications. Patient denies any new/deterioration of his vision. He states his normal eye vision is 20/300 to the left eye and his res counselor is aware. Review of Systems Review of Systems Constitutional: Denies fever or chills [] Eyes: Reports chronic left eye pain. Denies change in visual acuity, redness Musculoskeletal: Denies back pain or joint pain [] Integument: Denies rash or skin lesions [] Neurologic: Denies headache, focal weakness or sensory changes [] All other systems were reviewed and found to be within normal limits, except as documented in this note. Current Medications Current Medications Current Medications Medications (Trade) Dose Ordered Sig/Nicolás Start Time Stop Time Status Last Admin Dose Admin Acetaminophen/ Hydrocodone Bitart (Lortab 5/325) 2 tab 1X ONCE 12/15/17 23:30 12/15/17 23:31 Allergies Allergies Allergies Coded Allergies Type Severity Reaction Last Updated Verified No Known Drug Allergies 07/07/16 No Physical Exam Physical Exam Constitutional: Well developed, well nourished, no acute distress, non-toxic appearance. [] HENT: Normocephalic, atraumatic, bilateral external ears normal, oropharynx moist, no oral exudates, nose normal. [] Eyes: PERRLA, EOMI, conjunctiva normal, no discharge. Inner eye exam deferred. Skin: Warm, dry, no erythema, no rash. [] Back: No tenderness, no CVA tenderness. [] Extremities: No tenderness, no cyanosis, no clubbing, ROM intact, no edema. [] Neurologic: Alert and oriented X 3, normal motor function, normal sensory function, no focal deficits noted. [] Psychologic: Affect normal, judgement normal, mood normal. [] Current Patient Data Vital Signs Vital Signs Date Time Temp Pulse Resp B/P (MAP) Pulse Ox O2 Delivery O2 Flow Rate FiO2 12/15/17 22:40 98.6 76 22 178/87 (117) 96 Room Air 98.6 EKG EKG [] Radiology/Procedures Radiology/Procedures [] Course & Med Decision Making Course & Med Decision Making Pertinent Labs and Imaging studies reviewed. (See chart for details) This is a 62-year-old male patient presenting to the ED today with chronic left eye pain, patient is scheduled to have eye surgery on Tuesday next week. Currently out of pain medications. Given prescription for hydrocodone. Requested he contacts his res counselor if he needs any more pain medicine. See history of present illness for further information. Dragon Disclaimer Dragon Disclaimer This electronic medical record was generated, in whole or in part, using a voice recognition dictation system. Departure Departure Impression: Primary Impression: Pain of left eye Disposition: HOME, SELF-CARE Condition: STABLE Referrals: NEIDA GOMEZ MD (PCP) Follow-up with your eye doctor at [facility] Patient Instructions: Eye Patch Additional Instructions: You were evaluated in the emergency room for chronic eye pain. Ensure you follow -up with the res counselor if you need more pain medicine. Scripts Hydrocodone Bit/Acetaminophen (HYDROCODONE-APAP 7.5-325 ) 1 Each Tablet 1-2 TAB PO PRN Q6HRS PRN for PAIN MDD 6, #20 TAB 0 Refills Prov: KAYLEE MATTHEWS STRAP MACHINE OPERATOR 12/15/17 Hydrocodone Bit/Acetaminophen (HYDROCODONE-APAP 7.5-325 ) 1 Each Tablet 1 TAB PO Q6HRS PRN for PAIN, #20 TAB 0 Refills Prov: KAYLEE MATTHEWS STRAP MACHINE OPERATOR 12/15/17 KAYLEE MATTHEWS STRAP MACHINE OPERATOR Dec 15, 2017 23:13
[2017-12-15] MEDS ORDERED: HYDROcodone/APAP 5/325MG 1 TAB TABLET PO ONE (23:30)
== END 2017-12-15 23:40 | disposition home or self-care (01) ==
LOC: ER 22:26
DX: G89.29 Other chronic pain (principal); H35.712 Central serous chorioretinopathy, left eye; H57.11 Ocular pain, right eye; I10 Essential (primary) hypertension; E78.00 Pure hypercholesterolemia, unspecified; I25.10 Atherosclerotic heart disease of native coronary artery without angina pectoris; F10.20 Alcohol dependence, uncomplicated
CPT/HCPCS: 99283

== ENCOUNTER 2018-01-06 10:59 | Emergency (ER) | payer MEDICARE ==
[~2018-01-06] VITALS: Ht 195.6 cm; Wt 136.1 kg
[~2018-01-06 10:59] MED LIST changes: -HYDR-2758 PO; +HYDR-2761 PO; +HYDR-2765 PO; +HYDR-3164 PO; -HYDR-971 PO
--- NOTE | 2018-01-06 12:16 | PHYS DOC ---
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 He had an eye surgery and his software engineer backend was treating him with gabapentin for trigeminal neuralgia which she said mildly improved his symptoms. He denies visual changes neck stiffness or recent head injury. Review of systems is negative for chest pain shortness of breath fevers or chills. All other review of systems is negative unless otherwise noted in history of present illness. ED course: 62-year-old male presenting with facial stabbing pain consistent with probable trazodone normal neuralgia. He denies any strokelike symptoms. He denies any recent head injury. Vitals show mild hypertension. Otherwise he is afebrile with normal heart rate and well-appearing on examination. Normal neurologic exam. On examination of the eye, the pupils equal round and reactive. Conjunctiva is within normal limits. Nontender in the temporal artery region. He denies vision changes. We will discharge patient home with oral gabapentin which was already prescribed by his software engineer backend in addition to a few hydrocodone's to follow-up with his PCP in 2-3 days. After reviewing the patient's ktracs, it appears the patient is prescribed 20 tablets of hydrocodone on December 15 and December 20 and December 11. Unfortunately this pattern being present I am unable to prescribe any opiates this patient. DC follow-up with PCP. The patient has been examined and was not found to have an emergency medical condition. The patient was then discharged home in stable condition to follow up with their primary care physician over the next 2-3 days. They were to return if their symptoms worsened or if they were concerned for any reason. They were also instructed to return to the emergency department if they were unable to get the recommended and appropriate follow- up. [id number] discharge instructions and return precautions were given. Patient's questions were answered to their satisfaction. Patient is comfortable with plan. Review of Systems Review of Systems SEE ABOVE. Allergies Allergies Allergies Coded Allergies Type Severity Reaction Last Updated Verified No Known Drug Allergies 07/07/16 No Physical Exam Physical Exam SEE ABOVE Constitutional: Well developed, well nourished, no acute distress, non-toxic appearance. [] HENT: Normocephalic, atraumatic, bilateral external ears normal, oropharynx moist, no oral exudates, nose normal. [] Neg for nuchal rigidity. Eyes: PERRLA, EOMI, conjunctiva normal, no discharge. Neck: Normal range of motion, no tenderness, supple, no stridor. [] Cardiovascular:Heart rate regular rhythm, no murmur Lungs & Thorax: Bilateral breath sounds clear to auscultation [] Abdomen: Bowel sounds normal, soft, no tenderness, no masses, no pulsatile masses. Skin: Warm, dry, no erythema, no rash. Back: No tenderness, no CVA tenderness. [] Extremities: No tenderness, no cyanosis, no clubbing, ROM intact, no edema. Neurologic: Alert and oriented X 3, normal motor function, normal sensory function, no focal deficits noted. [] Psychologic: Affect normal, judgement normal, mood normal. Current Patient Data Vital Signs Vital Signs Date Time Temp Pulse Resp B/P (MAP) Pulse Ox O2 Delivery O2 Flow Rate FiO2 01/06/18 11:33 98.1 79 20 189/105 (133) 95 Room Air 98.1 EKG EKG [] Radiology/Procedures Radiology/Procedures [] Course & Med Decision Making Course & Med Decision Making Pertinent Labs and Imaging studies reviewed. (See chart for details) [] Dragon Disclaimer Dragon Disclaimer This electronic medical record was generated, in whole or in part, using a voice recognition dictation system. Departure Departure Impression: Primary Impression: Trigeminal neuralgia of left side of face Disposition: HOME, SELF-CARE Condition: STABLE Referrals: NEIDA GOMEZ MD (PCP) Additional Instructions: Thank you for allowing us to participate in your care today. Return to the emergency department you have any new or worsening symptoms, or if you are concerned for any reason. Return to emergency department if you have any new or concerning symptoms including but not limited to fever, chills, nausea, vomiting, intractable pain, any new rashes, chest pain, shortness of air , uncontrolled bleeding, difficulty breathing, and/or vision loss. Follow up with your primary care physician within 3 days. Call your Primary Doctor tomorrow and inform them of your visit today. If you do not have a primary care provider we are happy to provide you with a list of our primary care providers contact information. This condition should be evaluated by your primary care physician and any recommended consulting services for continued management within 2-3 days after discharge. If at any time, you are having difficulty getting into your primary care doctor or a specialist, return to the emergency department. DUNG VANCE MD Jan 06, 2018 12:16
[2018-01-06 12:30] VITALS: BP 179/85
== END 2018-01-06 12:44 | disposition home or self-care (01) ==
LOC: ER 10:59
DX: G50.0 Trigeminal neuralgia (principal); E78.00 Pure hypercholesterolemia, unspecified; I10 Essential (primary) hypertension; I25.10 Atherosclerotic heart disease of native coronary artery without angina pectoris; F41.9 Anxiety disorder, unspecified; F32.9 Major depressive disorder, single episode, unspecified; Y90.9 Presence of alcohol in blood, level not specified; F10.20 Alcohol dependence, uncomplicated; Z95.5 Presence of coronary angioplasty implant and graft
CPT/HCPCS: 99283

== ENCOUNTER → 2018-03-06 | Outpatient (CLI) | payer MEDICARE ==
[~2018-03-06] MED LIST changes: +IOHEXOL 300 MG/ML 100ML VIAL. IV ONE; +LOSA-73 PO; -LOSA50TA7 PO
--- NOTE | 2018-03-06 15:43 | KCIC ---
EXAM: Head CT with and without contrast. HISTORY: Atypical facial pain. TECHNIQUE: Computed tomographic images of the head were obtained prior to and following the administration of 70 cc Omnipaque 300 intravenous contrast. *One or more of the following individualized dose reduction techniques were utilized for this examination: 1. Automated exposure control. 2. Adjustment of the mA and/or kV according to patient size. 3. Use of iterative reconstruction technique. COMPARISON: Maxillofacial bone CT dated 01/07/2017. FINDINGS: There is no hemorrhage. There is no mass effect or midline shift. There is no hydrocephalus. There is a slightly linear focus of enhancement within the inferior medial right cerebellum, possibly a developmental venous anomaly. There is mild distal thickening involving the left aspect of the sphenoid sinus. The visualized portions of the orbits are unremarkable. The mastoid air cells are clear. No calvarial lesion is seen. IMPRESSION: 1. No acute intracranial finding. 2. Somewhat linear region of enhancement along the inferior medial right cerebellum, possibly due to a developmental venous anomaly or alternative vascular malformation. Note is made that MRI is reportedly not clinically feasible. Therefore, short-term follow-up with a contrast-enhanced CT or CT angiogram of the head is recommended to confirm stability and exclude neoplasm within this location. Electronically signed by: Kasia Brice MD (03/06/2018 3:39 PM) [place] [id number]
== END | disposition home or self-care (01) ==
LOC: KCIC CT 14:24
PROVIDERS: ATTEND Psychiatry & Neurology Neurology with Special Qualifications in Child Neurology
DX: G50.1 Atypical facial pain (principal); I10 Essential (primary) hypertension; Z79.01 Long term (current) use of anticoagulants; Z95.1 Presence of aortocoronary bypass graft
CPT/HCPCS: 70470; Q9967

== ENCOUNTER → 2018-08-31 | Outpatient (CLI) | payer MEDICARE ==
[~2018-08-31] MED LIST changes: -IOHEXOL 300 MG/ML 100ML VIAL. IV ONE; +LIDOCAINE 2% VISCOUS 15 ML SOLUTION. ONE; +METO50TA6 PO
--- NOTE | 2018-09-01 05:52 | PAIN ---
DATE OF SERVICE: 08/31/2018 INITIAL CONSULTATION FOR PAIN CLINIC CHIEF COMPLAINT: Left-sided facial pain. HISTORY OF PRESENT ILLNESS: This is a 62-year-old male who presents with history of pain since about a year and a half after following a root canal procedure on the left lower jaw. The patient reports he had pain fairly quickly after that and that has evolved and has never really gone away. The patient reports initially he was unable to open his mouth more than about 1 inch that initially got better. He has been seen by several dentists without any good explanation why the pain is persistent and also from with his neurologist with a diagnosis of atypical facial pain. The patient reports he has tried Lyrica, gabapentin, Cymbalta, topiramate, none of which have helped with the pain whatsoever. The patient reports it is worse at all times. He also gets helps with his opioids. He takes in the morning, Percocet and/or Lortab. He has both which did decrease the pain for about every 5-6 hours at the most. The patient reports other that he has some visual disturbances in his left eye and is seeing a retinal specialist for this as well. The patient reports it awakens him from sleep at night frequently, especially if he lies on his left side. The patient reports a disability rate from 0-10, 10 being the worst, is an 8 with family and home responsibilities, occupation and sexual behavior, self-care and life support activities, 9 with recreation, 10 with social activity. The patient had no other specific studies at this time. He did have a negative maxillofacial CT. PAST MEDICAL HISTORY: Significant for dizziness, hypertension, iliac stents. PREVIOUS SURGERIES: Include cataract extraction in 2003, bilateral hip replacements in 2003 and 2006, carotid endarterectomy in 1998. CURRENT MEDICATIONS: Include losartan, simvastatin, metoprolol, fenofibrate, nifedipine, clopidogrel, Xanax and Lortab. ALLERGIES: The patient has no known drug allergies. FAMILY HISTORY: Significant for cancers and glaucoma. SOCIAL HISTORY: The patient drinks alcohol about 3 drinks daily, does not smoke, does not use any illegal, illicit or recreational drugs. He is single. Lives locally in [place], [place]. REVIEW OF SYSTEMS: The patient's review of systems is positive for those items mentioned in history of present illness. All systems reviewed and otherwise negative. It is complete, full and well documented on the patient's chart. PHYSICAL EXAMINATION: VITAL SIGNS: The patient's blood pressure is 121/57, pulse is 81, respirations 18, temperature 97.8 degrees Fahrenheit, height is 6 feet 5 inches, weighs 298 pounds. GENERAL: The patient is awake, alert, oriented, appropriate, very pleasant demeanor. HEENT: Head is normocephalic, atraumatic. Extraocular movements are intact and symmetrical. Pupils equal and round, reactive to light and accommodation. Oral cavity shows good jaw opening without significant increase in pain with this. Mucous membranes are moist and pink. Tongue is moist and pink. No plaquing. Dentition is intact as noted. Palpation of the jaw shows no significant increase in pain over the temporomandibular joint or the mandible or maxillary region itself. NECK: Shows anterior throat supple without palpable lymphadenopathy noted. Swallow reflex is symmetrical. CHEST: Shows normal on inspection. Breath sounds clear to auscultation bilaterally. HEART: Shows S1, S2 clear. No murmurs auscultated. ABDOMEN: Soft, nontender, nondistended. No palpable organomegaly is noted. No rebound or guarding demonstrated. BACK: Shows spine grossly in the midline. Normal appearing thoracic kyphosis and lumbar lordotic curvature. Lumbar paraspinous muscle shows symmetrical on inspection as does thoracic and cervical distribution. Neck shows full rotational motion of cervical spine, both laterally greater than 45 degrees, closer to 90 degrees with full extension, full forward flexion without significant pain reported without exacerbation of facial pain. IMPRESSION: 1. This is a 62-year-old male with year and a half history of pain following a dental procedure, a root canal in the left lower jaw with atypical facial pain at this time. 2. Dizziness. 3. Hypertension. PLAN: Options were discussed with the patient including continued conservative medical managements, therapies as well as a dental followup and interventional techniques. We discussed a sphenopalatine ganglion block using a transnasal approach. The patient would like to pursue this. We also discussed a stellate ganglion block, but will try the at least invasive procedure first. Risks were discussed with the patient including, but not limited to bleeding, infection, possibility of excessive absorption of local anesthetic and sequelae as well as numbness of the upper pharynx and epiglottis with possible aspiration risk following the procedure as well as poor results regarding pain control. The patient understands and wished to proceed. The patient will return to clinic in approximately 2 weeks for followup, was counseled as to return appointment, activity level and side effects to be aware of. DIAGNOSIS: Atypical facial pain. PROCEDURE: Left transnasal sphenopalatine ganglion block using local anesthetic. MEDICATION UTILIZED: Viscous lidocaine 2%, 5 mL. CONDITION ON DISCHARGE: Stable. The patient tolerated procedure well, had no complications following the procedure. SUE KELLER MD DR: JIGNESH/artemio JOB#: [id number] / [id number] NEIDA Perez MD
== END | disposition home or self-care (01) ==
LOC: PNCL 12:43
PROVIDERS: ATTEND Anesthesiology
DX: G50.1 Atypical facial pain (principal); I10 Essential (primary) hypertension; Z98.890 Other specified postprocedural states; Z96.643 Presence of artificial hip joint, bilateral; Z98.49 Cataract extraction status, unspecified eye; Z96.1 Presence of intraocular lens
CPT/HCPCS: 64505

== ENCOUNTER → 2018-09-19 | Outpatient (CLI) | payer MEDICARE ==
--- NOTE | 2018-09-19 20:48 | PN ---
DATE: 09/19/2018 PROGRESS NOTE FOR PAIN CLINIC DIAGNOSIS: Atypical facial pain. HISTORY OF PRESENT ILLNESS: The patient is a 62-year-old male who returns for followup status post left transnasal sphenopalatine ganglion block on 08/31/2018. The patient reports he did about 50% improvement by the day after the procedure; the first day was fairly sore day of procedure and the second day, but the day after the procedure that it was about 50% better with the pain in the left side of his face and especially behind his eye. The patient reports the eye pain is doing much better. The rest of the pain is fairly stable in the jaw and the left side of the face. The patient reports his pain is a 4 on a scale of 10 at its worst in the past week, 4 on average and 2 at its least and is a 4 today. The patient reports no new motor or sensory deficits. No new changes. The patient reports he has been sleeping fairly well at night, does not generally awaken him from sleep. No new motor or sensory deficits or other complaints. PHYSICAL EXAMINATION: VITAL SIGNS: The patient's blood pressure is 141/74, pulse is 80, respirations 18, temperature 98.3 degrees Fahrenheit, height is 6 feet 5 inches, weight is 298 pounds. GENERAL: The patient is awake, alert, oriented, appropriate, very pleasant demeanor. HEENT: Shows normocephalic, atraumatic. Extraocular movements are intact and symmetrical. Oral cavity: Mucous membranes moist and pink. Dentition is intact. NECK: Shows anterior throat supple without palpable lymphadenopathy noted. Swallow reflex symmetrical. CHEST: Shows normal on inspection. Breath sounds are clear to auscultation bilaterally. HEART: Shows S1, S2 clear. No murmurs auscultated. ABDOMEN: Soft, nontender, nondistended. BACK: Shows spine grossly in the midline, normal-appearing cervical lordotic curvature. The patient shows full rotational motion of cervical spine, both laterally as well as extension and flexion without significant increase in pain. The patient's oral cavity shows pink mucous membranes, moist. Dentition intact. No lesions, no sores or abnormalities in the mucosa or the tongue. Options were discussed with the patient. The patient's old chart was reviewed as his current medication regimen updated. Current review of systems updated today as well. We will proceed with a repeat left transnasal sphenopalatine ganglion block. Risks were again discussed including, but not limited to bleeding, infection, possibility of spread of local anesthetic and numbness, possible local anesthetic drainage to the nasopharynx and into the vocal cords with possible aspiration risk postoperatively, and poor results regarding pain control. The patient understands and wished to proceed. The patient will return to clinic in approximately 2 weeks for followup. He was counseled on return appointment, activity level, and side effects to be aware of. IMPRESSION: Atypical facial pain. PROCEDURE: Transnasal sphenopalatine ganglion block, left naris under sterile technique. Total medication is 2% viscous lidocaine, 5 mL total. CONDITION AT DISCHARGE: Stable. The patient tolerated procedure well, had no complications. SUE KELLER MD DR: JIGNESH/artemio JOB#: [id number] / [id number]
== END ==
LOC: PNCL 12:51
PROVIDERS: ATTEND Anesthesiology
DX: G50.1 Atypical facial pain (principal)
CPT/HCPCS: 64505

== ENCOUNTER → 2018-09-19 | Outpatient (CLI) | payer MEDICARE ==
[~2018-09-19] MED LIST changes: -LIDOCAINE 2% VISCOUS 15 ML SOLUTION. ONE
[2018-09-19] MEDS: IOHEXOL 300 MG/ML 100ML VIAL. IV ONE (15:10)
--- NOTE | 2018-09-19 16:11 | RAD ---
PQRS Compliance Statement: One or more of the following individualized dose reduction techniques were utilized for this examination: 1. Automated exposure control 2. Adjustment of the mA and/or kV according to patient size 3. Use of iterative reconstruction technique CT head with and without contrast 09/19/2018 3:30 PM INDICATION: Venous angioma COMPARISON: CT head February 26, 2018 TECHNIQUE: Multiple axial CT images of the head were obtained from skull base through the vertex with and without intravenous contrast. FINDINGS: Head: Ventricles, sulci and basal cisterns are within normal limits. There is no hydrocephalus. Ramirez-white matter differentiation is normal. There is no acute intracranial hemorrhage. There is no mass, mass effect or midline shift. Posterior fossa is normal in appearance. Stable focal enhancement involving the medial right cerebellum with imaging characteristics most compatible with a small developmental venous anomaly. No high densities identified on precontrast imaging to suggest underlying cavernoma. Dural venous sinuses are patent. Visualized portions of the orbits are normal with exception of bilateral lens replacement . Paranasal sinuses are well aerated. Mastoid air cells are well aerated. Scalp and calvaria are normal. IMPRESSION: No acute intracranial hemorrhage. Stable small developmental venous anomaly in the medial right cerebellum. Electronically signed by: Yisel Douglas MD (09/19/2018 4:08 PM) [id number]
== END | disposition home or self-care (01) ==
LOC: CT 14:21
PROVIDERS: ATTEND Psychiatry & Neurology Neurology with Special Qualifications in Child Neurology
DX: D18.00 Hemangioma unspecified site (principal)
CPT/HCPCS: 70470; Q9967

== ENCOUNTER → 2018-10-04 | Outpatient (CLI) | payer MEDICARE ==
[2018-10-04 14:59] LABS: BARBITURATES NEG (NEG); BENZODIAZEPINES POS (NEG); CANNABINOIDS NEG (NEG); COCAINE NEG (NEG); METHADONE NEG (NEG); OPIATES POS (NEG); PHENCYCLIDINE NEG (NEG)
[2018-10-04 15:00] LABS: AMPHETAMINE/METHAMPHETAMINE NEG (NEG)
== END | disposition home or self-care (01) ==
LOC: LAB 13:51
PROVIDERS: ATTEND Psychiatry & Neurology Neurology with Special Qualifications in Child Neurology
DX: Z79.891 Long term (current) use of opiate analgesic (principal)
CPT/HCPCS: 80307

== ENCOUNTER → 2019-04-04 | Outpatient (CLI) | payer MEDICARE ==
[~2019-04-04] MED LIST changes: +DORZ10DR21 OP; +FENO145T3 PO; -FENO145T30 PO; +HYDR25SU3 PR; +LATA2.5D3 OP; +OMEP10CA4 PO; +OMEP40CA45 PO; +ONDA-84 PO; +OXYC20TA34 PO; +SIMV40TA18 PO; -SIMV40TA3 PO; +SUCR1TAB35 PO
--- NOTE | 2019-04-05 01:06 | PAIN ---
DATE OF SERVICE: 04/04/2019 PROGRESS NOTE FOR PAIN CLINIC DIAGNOSIS: Atypical facial pain. HISTORY OF PRESENT ILLNESS: The patient is a 63-year-old male who returns for followup. He was last seen in September 2018 for atypical facial pain on the left side. The patient reports he still has some significant pain. We tried 2 transnasal sphenopalatine ganglion blocks, both of which he reports helped for about 3-4 days, but then the pain came back as severe as it was fairly quickly. The patient has been managed with hydrocodone 7.5 mg two tablets at a time. He reports only minimal decrease in pain, but no side effects from the medication. The patient reports his pain as 8 on a scale of 10 at its worst, 8 on average, 5 at its least over the past week and is 8 today. It is burning, aching, sharp, radiating, constant, severe, unbearable at times. The patient is frustrated as he has no good decrease in his pain thus far. The patient reports that he has spoken with his neurologist, Dr. Knox, regarding long-term narcotic analgesics and I discouraged him from that, putting too much hoping. I re-explained it is not a good long-term solution; however, he does have a Neurology appointment coming up in June at the [facility] for a second opinion and this may be something that could bridge him to that point at least to get the pain down in the meantime. The patient also reports he is dizzy, he has not eaten in 3 days, he is only drinking 7Up and fruit juices as he is not able to keep food down, is not able to swallow any solid foods currently and is having some significant nausea and dry heaves every morning. This has been going on for about the past 2 weeks as well. The patient reports no other changes. PHYSICAL EXAMINATION: VITAL SIGNS: The patient's blood pressure is 135/85, pulse 93, respirations 18, temperature 98.5 degrees Fahrenheit, height is 6 feet 5 inches, weight is 275 pounds. GENERAL: The patient is awake, alert, oriented, appropriate, very pleasant demeanor. HEENT: Head shows normocephalic, atraumatic. The patient is wearing eyeglasses. Extraocular movements are intact and symmetrical. Oral cavity: Mucous membranes are moist and pink. Dentition is intact. NECK: Shows anterior throat supple. CHEST: Shows normal on inspection. Breath sounds are clear bilaterally. HEART: Shows S1, S2 clear. No murmurs are auscultated. ABDOMEN: Soft, nontender, nondistended. No palpable organomegaly is noted. No rebound or guarding demonstrated. BACK: Shows spine grossly in the midline. Normal appearing thoracic kyphosis and cervical lordotic curvature. The patient shows full rotational motion of the cervical spine both laterally as well as extension and flexion without difficulty and without pain reported. EXTREMITIES: The patient's upper extremities show deep tendon reflexes 2+ in the biceps and triceps tendons. Motor exam is strong with weather clerk strength rated at 5/5, bicep and tricep flexion. The patient is using a wheelchair today as he is very dizzy with standing. With sitting, he does not feel significantly dizzy. The patient's left side of the face shows normocephalic, atraumatic. Pupils are equal, round and reactive to light. No obvious abnormalities. No rashes. No allodynia or hyperesthesia over the left side of the face. PLAN: Options were discussed with the patient. The patient's old chart was reviewed as his current medication regimen updated. Current review of systems is updated today as well. We will send a word to Dr. Bustamante regarding potential trial of oxycodone, I recommend 20 mg every 12 hours. I also forward recommendation for Gastroenterology evaluation through his primary care physician, Dr. Paulson, for the inability to eat, keep food down, dry heaving and nausea over the past 2 weeks. The patient will follow up with this office on as needed basis. SUE KELLER MD DR: JIGNESH/artemio JOB#: [id number] / [id number] Douglas Jacobo MD, ANIL MD
== END ==
LOC: PNCL 12:40
PROVIDERS: ATTEND Anesthesiology
DX: G50.1 Atypical facial pain (principal)
CPT/HCPCS: G0463

== ENCOUNTER 2019-04-06 14:39 | Inpatient (IN) | payer MEDICARE ==
[~2019-04-06] VITALS: Ht 195.6 cm; Wt 127.2 kg
[~2019-04-06 14:39] MED LIST changes: -DORZ10DR21 OP; -HYDR25SU3 PR; -LATA2.5D3 OP; -OMEP40CA45 PO; -ONDA-84 PO; -OXYC20TA34 PO
[2019-04-06] MEDS ORDERED: IV NORMAL SALINE 500ML BAG 500 ML IV ONE (14:45)
--- NOTE | 2019-04-06 14:55 | PHYS DOC ---
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 Patient states that he saw his primary care physician 2 days ago and was started on OxyContin for chronic pain. He reports some increasing gait disturbance over the past week and states that he normally gets around without assisted devices but he has had trouble recently even using a walker. Patient denies chest pain or shortness of breath or recent sickness. He did just reported to nursing staff that he drinks 5-6 drinks daily and does this while taking pain medication. Review of Systems Review of Systems All other ROS is negative unless otherwise stated in HPI Current Medications Current Medications Current Medications Medications (Trade) Dose Ordered Sig/Nicolás Start Time Stop Time Status Last Admin Dose Admin Aspirin (Children'S Aspirin) 324 mg 1X ONCE 04/06/19 16:30 04/06/19 16:31 DC 04/06/19 16:33 324 MG Potassium Chloride (Klor-Con) 40 meq 1X ONCE 04/06/19 16:30 04/06/19 16:31 DC 04/06/19 16:34 40 MEQ Sodium Chloride 500 ml @ 500 mls/hr 1X ONCE 04/06/19 14:45 04/06/19 15:44 DC 04/06/19 15:13 500 MLS/HR Thiamine HCl 100 mg/Dextrose 51 ml @ 102 mls/hr 1X ONCE 04/06/19 15:00 04/06/19 15:29 DC 04/06/19 16:25 102 MLS/HR Allergies Allergies Allergies Coded Allergies Type Severity Reaction Last Updated Verified No Known Drug Allergies 07/07/16 No Physical Exam Physical Exam See above Constitutional: Well developed, well nourished, no acute distress, non-toxic appearance. [] HENT: Normocephalic, atraumatic, bilateral external ears normal, oropharynx moist, no oral exudates, nose normal. [] Eyes: PERRLA, EOMI, conjunctiva normal, no discharge. [] Neck: Normal range of motion, no tenderness, supple, no stridor. [] Cardiovascular:Heart rate regular rhythm, no murmur [] Lungs & Thorax: Bilateral breath sounds clear to auscultation [] Abdomen: Bowel sounds normal, soft, no tenderness, no masses, no pulsatile mass es. [] Skin: Warm, dry, no erythema, no rash. [] Back: No tenderness, no CVA tenderness. [] Extremities: No tenderness, no cyanosis, no clubbing, ROM intact, trace b/l LE edema. [] Neurologic: Alert and oriented X 3, normal motor function, normal sensory function, no focal deficits noted. [] Psychologic: Affect normal, judgement normal, mood normal. [] Current Patient Data Vital Signs Vital Signs Date Time Temp Pulse Resp B/P (MAP) Pulse Ox O2 Delivery O2 Flow Rate FiO2 04/06/19 14:40 98.7 94 17 162/103 (122) 97 Room Air 98.7 Lab Values Laboratory Tests Test 04/06/19 14:49 White Blood Count 5.6 x10^3/uL (4.0-11.0) Red Blood Count 3.71 x10^6/uL (4.30-5.70) L Hemoglobin 12.8 g/dL (13.0-17.5) L Hematocrit 37.6 % (39.0-53.0) L Mean Corpuscular Volume 101 fL (79-100) H Mean Corpuscular Hemoglobin 35 pg (25-35) Mean Corpuscular Hemoglobin Concent 34 g/dL (31-37) Red Cell Distribution Width 14.8 % (11.5-14.5) H Platelet Count 209 x10^3/uL (140-400) Neutrophils (%) (Auto) 77 % (31-73) H Lymphocytes (%) (Auto) 14 % (24-48) L Monocytes (%) (Auto) 8 % (0-9) Eosinophils (%) (Auto) 0 % (0-3) Basophils (%) (Auto) 0 % (0-3) Neutrophils # (Auto) 4.4 x10^3/uL (1.8-7.7) Lymphocytes # (Auto) 0.8 x10^3/uL (1.0-4.8) L Monocytes # (Auto) 0.4 x10^3/uL (0.0-1.1) Eosinophils # (Auto) 0.0 x10^3/uL (0.0-0.7) Basophils # (Auto) 0.0 x10^3/uL (0.0-0.2) Sodium Level 137 mmol/L (136-145) Potassium Level 2.7 mmol/L (3.5-5.1) *L Chloride Level 97 mmol/L (98-107) L Carbon Dioxide Level 27 mmol/L (21-32) Anion Gap 13 (6-14) Blood Urea Nitrogen 7 mg/dL (8-26) L Creatinine 1.1 mg/dL (0.7-1.3) Estimated GFR (Cockcroft-Gault) 67.6 BUN/Creatinine Ratio 6 (6-20) Glucose Level 105 mg/dL (70-99) H Calcium Level 8.8 mg/dL (8.5-10.1) Total Bilirubin 1.0 mg/dL (0.2-1.0) Aspartate Amino Transferase (AST) 86 U/L (15-37) H Alanine Aminotransferase (ALT) 38 U/L (16-63) Alkaline Phosphatase 93 U/L (46-116) Myoglobin 300 ng/mL (16-96) H Troponin I Quantitative 0.040 ng/mL (0.000-0.055) ZZ-Zon-S-Type Natriuretic Peptide 305 pg/mL (0-124) H Total Protein 6.1 g/dL (6.4-8.2) L Albumin 3.0 g/dL (3.4-5.0) L Albumin/Globulin Ratio 1.0 (1.0-1.7) Ethyl Alcohol Level 35 mg/dL (0-10) H Laboratory Tests 04/06/19 14:49 Laboratory Tests 04/06/19 14:49 EKG EKG []Patient's EKG showed a sinus rhythm with a ventricular rate of [address] depression/T wave inversion in leads V3 and V4. Radiology/Procedures Radiology/Procedures CT HEAD INDICATION: Weakness, gait abnormality COMPARISON: 09/19/2018 Exposure: One or more of the following individualized dose reduction techniques were utilized for this examination: 1. Automated exposure control 2. Adjustment of the mA and/or kV according to patient size 3. Use of iterative reconstruction technique TECHNIQUE: 5 mm contiguous axial images were obtained from the skull base to the vertex in both bone and soft tissue algorithm. FINDINGS: No abnormal attenuation within the brain parenchyma. No evidence of acute intracranial hemorrhage. No extra-axial fluid collections. No mass effect or midline shift. Ventricular size is appropriate. Basal cisterns are patent. No fractures identified.Ramirez-white differentiation is preserved.Globes and orbits are within normal limits. Paranasal sinuses and mastoid air cells are clear. IMPRESSION: No acute intracranial findings. []AP chest. HISTORY: Weakness AP view was taken of the chest. Lungs are clear. Heart is normal in size without heart failure. There is no effusion. IMPRESSION: 1. No acute chest disease. Course & Med Decision Making Course & Med Decision Making Pertinent Labs and Imaging studies reviewed. (See chart for details) 1453: Patient is seen for complaints of progressive weakness and gait disturbance. We will get a CT scan of his head based on his presenting symptoms and also a complete workup. His symptoms could potentially be due to his alcohol use. 1619: Patient's workup is complete at this time and his CT scan is unremarkable. The patient's labs do have some abnormalities including hypokalemia of 2.7; I have ordered 40 mEq of oral potassium for replacement. The patient also has a mildly elevated BNP and his troponin is 0.040 which is within normal limits but elevated for this patient. Given the EKG changes the patient has been given 324 mg of aspirin. We will admit for observation due to weakness, hypokalemia, abnormal EKG and troponin. The patient has also been given 100 mg of thiamine due to his history of alcohol abuse. Dragon Disclaimer Dragon Disclaimer This electronic medical record was generated, in whole or in part, using a voice recognition dictation system. Departure Departure Impression: Primary Impression: Hypokalemia Additional Impressions: Elevated brain natriuretic peptide (BNP) level Altered gait Weakness Alcohol abuse Disposition: ADMITTED INPATIENT Admitting Physician: JONI Condition: STABLE Referrals: NEIDA GOMEZ MD (PCP) Problem Qualifiers DAVIE LINDSAY DO Apr 06, 2019 14:55
[2019-04-06 14:59] LABS: BASO % 0 % (0-3); EOS % 0 % (0-3); HEMATOCRIT 37.6 % (39.0-53.0); HEMOGLOBIN 12.8 g/dL (13.0-17.5); LYMPH # 0.8 x10^3/uL (1.0-4.8); LYMPH % 14 % (24-48); MEAN CORPUSCULAR HEMOGLOBIN 35 pg (25-35); MEAN CORPUSCULAR HGB CONC 34 g/dL (31-37); MEAN CORPUSCULAR VOLUME 101 fL (79-100); MONO # 0.4 x10^3/uL (0.0-1.1); MONO % 8 % (0-9); NEUT # 4.4 x10^3/uL (1.8-7.7); NEUT % 77 % (31-73); PLATELET COUNT 209 x10^3/uL (140-400); RED BLOOD COUNT 3.71 x10^6/uL (4.30-5.70); RED CELL DISTRIBUTION WIDTH 14.8 % (11.5-14.5); WHITE BLOOD COUNT 5.6 x10^3/uL (4.0-11.0)
[2019-04-06] MEDS ORDERED: THIAMINE INJ 100 MG in IV DEXTROSE 5% 50 ML IV ONE (15:00)
--- NOTE | 2019-04-06 15:13 | RAD ---
AP chest. HISTORY: Weakness AP view was taken of the chest. Lungs are clear. Heart is normal in size without heart failure. There is no effusion. IMPRESSION: 1. No acute chest disease. Electronically signed by: Sky Negrete MD (04/06/2019 3:10 PM) [id number]
[2019-04-06 15:47] LABS: CALCIUM 8.8 mg/dL (8.5-10.1); CREATININE 1.1 mg/dL (0.7-1.3); GFR 67.6; TOTAL PROTEIN 6.1 g/dL (6.4-8.2)
[2019-04-06 15:51] LABS: POTASSIUM 2.7 mmol/L (3.5-5.1)
--- NOTE | 2019-04-06 15:53 | EKG ---
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
--- NOTE | 2019-04-06 16:09 | RAD ---
CT HEAD INDICATION: Weakness, gait abnormality COMPARISON: 09/19/2018 Exposure: One or more of the following individualized dose reduction techniques were utilized for this examination: 1. Automated exposure control 2. Adjustment of the mA and/or kV according to patient size 3. Use of iterative reconstruction technique TECHNIQUE: 5 mm contiguous axial images were obtained from the skull base to the vertex in both bone and soft tissue algorithm. FINDINGS: No abnormal attenuation within the brain parenchyma. No evidence of acute intracranial hemorrhage. No extra-axial fluid collections. No mass effect or midline shift. Ventricular size is appropriate. Basal cisterns are patent. No fractures identified.Ramirez-white differentiation is preserved.Globes and orbits are within normal limits. Paranasal sinuses and mastoid air cells are clear. IMPRESSION: No acute intracranial findings. Electronically signed by: Kaleb Bearden MD (04/06/2019 4:06 PM) [id number]
[2019-04-06] MEDS ORDERED: ASPIRIN CHEWABLE 81 MG TABLET. PO ONE (16:30)
[2019-04-06] MEDS ORDERED: POTASSIUM CHLORIDE 20 MEQ TABLET.ER. PO ONE (16:30)
[2019-04-06 18:07] LABS: BILIRUBIN,URINE NEGATIVE (NEG); CLARITY,URINE CLEAR; COLOR,URINE YELLOW; NITRITE,URINE NEGATIVE (NEG); PH,URINE 6.5; PROTEIN,URINE NEGATIVE (NEG-TRACE)
[2019-04-06] MEDS: POTASSIUM CHLORIDE 10MEQ 100 ML IV SCH ×2 (18:10→19:15)
[2019-04-06 18:22] LABS: BACTERIA,URINE 0 /HPF (0-FEW); RBC,URINE 0 /HPF (0-2); SPERM,URINE PRESENT /HPF; SQUAMOUS EPITHELIAL CELL,UR OCC /LPF; WBC,URINE 0 /HPF (0-4)
[2019-04-06 19:00] VITALS: BP 144/74
[2019-04-06] MEDS ORDERED: ONDA-84 PO (20:00)
[2019-04-06] MEDS ORDERED: DORZ10DR21 OP (20:00)
[2019-04-06] MEDS ORDERED: OMEP40CA45 PO (20:00)
[2019-04-06] MEDS ORDERED: LATA2.5D3 OP (20:00)
[2019-04-06] MEDS ORDERED: OXYC20TA34 PO (20:00)
[2019-04-06] MEDS ORDERED: HYDR25SU3 PR (20:00)
[2019-04-06] MEDS ORDERED: HYDROCORTISONE ACETATE 25 MG SUPP.RECT PR PRN (20:30)
[2019-04-06] MEDS ORDERED: ONDANSETRON ODT 4 MG TAB.RAPDIS. PO PRN (20:45)
[2019-04-06] MEDS ORDERED: LATANOPROST 0.005% OPHTH SOLUTION 2.5ML BOTTLE. OU SCH (21:00)
[2019-04-06] MEDS: SUCRALFATE 1 GM TABLET. PO SCH (21:39)
[2019-04-06] MEDS: oxyCODONE ER 10 MG TAB.ER.12H PO SCH (21:40)
[2019-04-06] MEDS: DORZOLAMIDE 2% OPHTH SOLUTION 10ML BOTTLE. OU SCH (21:41)
[2019-04-06] MEDS: TIMOLOL 0.5% OPHTH SOLUTION 5ML BOTTLE. OU SCH (21:42)
[2019-04-06 23:25] VITALS: BP 128/70
[2019-04-07 03:48] VITALS: BP 131/73
[2019-04-07 07:00] VITALS: BP 129/70
[2019-04-07 07:46] LABS: CALCIUM 8.5 mg/dL (8.5-10.1); CREATININE 0.9 mg/dL (0.7-1.3); GFR 85.2
[2019-04-07] MEDS: CLOPIDOGREL BISULFATE 75 MG TABLET PO SCH (09:32)
[2019-04-07] MEDS: LOSARTAN POTASSIUM 25 MG TABLET. PO SCH (09:32)
[2019-04-07] MEDS: FENOFIBRATE,MICRONIZED 134 MG CAPSULE PO SCH (09:32)
[2019-04-07] MEDS: SUCRALFATE 1 GM TABLET. PO SCH ×4 (09:32→22:08)
[2019-04-07] MEDS: oxyCODONE ER 10 MG TAB.ER.12H PO SCH ×2 (09:33→20:47)
[2019-04-07] MEDS: HYDROcodone/APAP 7.5/325MG 1 TAB TABLET PO PRN ×2 (09:33→16:21)
[2019-04-07] MEDS: PANTOPRAZOLE 40 MG TABLET.DR. PO SCH (09:33)
[2019-04-07] MEDS: LATANOPROST 0.005% OPHTH SOLUTION 2.5ML BOTTLE. OU SCH ×2 (09:34→20:44)
[2019-04-07] MEDS: ALPRAZolam 1 MG TABLET PO PRN (09:41)
[2019-04-07 11:00] VITALS: BP 101/67
[2019-04-07] MEDS ORDERED: POTASSIUM CHLORIDE 20 MEQ TABLET.ER. PO ONE (11:15)
[2019-04-07] MEDS: NICOTINE 14MG PATCH. TD SCH (11:44)
--- NOTE | 2019-04-07 12:41 | HP ---
ADMIT DATE: 04/06/2019 CHIEF COMPLAINT: Weakness. HISTORY OF PRESENT ILLNESS: The patient is a pleasant 63-year-old male who drinks heavily. He states he has been developing weakness. He has lower extremity weakness. His arms are a little weak. It has been occurring for several weeks. He apparently was started on oxycodone recently by his primary care doctor about 2 days ago. While in the ER, we noticed that he was hypokalemic and has a gait disturbance and an elevated BNP. I discussed the case with ER physician. We are going to admit the patient and consult Neurology. PAST MEDICAL AND SURGICAL HISTORY: Alcoholism, CAD, anxiety, depression, hyperlipidemia, hypertension, AAA at 3.5 cm, retinopathy, hip replacement, tonsillectomy, cardiac stents, carotid stents, retinal surgery, previous tobacco abuse. ALLERGIES: None. FAMILY HISTORY: Alcoholism. SOCIAL HISTORY: He drinks heavily. He used to smoke. No drugs. MEDICATIONS: Reviewed, please refer to the MRAD. REVIEW OF SYSTEMS: GENERAL: No history of weight change, weakness or fevers. SKIN: No bruising, hair changes or rashes. EYES: No blurred, double or loss of vision. NOSE AND THROAT: No history of nosebleeds, hoarseness or sore throat. HEART: No history of palpitations, chest pain or shortness of breath on exertion. LUNGS: Denies cough, hemoptysis, wheezing or shortness of breath. GASTROINTESTINAL: Denies changes in appetite, nausea, vomiting, diarrhea or constipation. GENITOURINARY: No history of frequency, urgency, hesitancy or nocturia. NEUROLOGIC: He complains of diffuse weakness. PSYCHIATRIC: No history of panic, anxiety or depression. ENDOCRINE: No history of heat or cold intolerance, polyuria or polydipsia. EXTREMITIES: Denies muscle weakness, joint pain, pain on walking or stiffness. PHYSICAL EXAMINATION: VITALS: Within normal limits and are stable. GENERAL: No apparent distress. Alert and oriented. HEENT: Normal cephalic atraumatic, external auditory canals are patent EYES: Extraocular muscles are intact, pupils are equally round and reactive to light and accommodation MUSCULOSKELETAL: Well developed, well nourished, good range of motion ENDOCRINE: No thyromegaly was palpated LYMPHATICS: No cervical chain or axillary nodes were noted HEMATOPOIETIC: No bruising NECK: Supple, no JVD, no thyromegaly was noted. LUNGS: Clear to auscultation in all lung nielsen without rhonchi or wheezing. HEART: RRR, S1, S2 present. Peripheral pulses intact, no obvious murmurs were noted. ABDOMEN: Soft, nontender. Positive bowel sounds no organomegaly, normal bowel sounds. EXTREMITIES: Without any cyanosis, clubbing, or edema. Pedal pulses intact, Homans sign is negative. NEUROLOGIC: He has decreased supplemental manager strength and decreased plantar flexion. PSYCHIATRIC: Normal affect, normal mood. Stable. SKIN: No ulcerations or rashes, good skin turgor, no jaundice. VASCULAR: Good capillary refill, neurovascular bundle appears to be intact. LABORATORY DATA: Hemoglobin is 12.8. Potassium is 3. Alcohol level is 35. Urinalysis is negative. IMAGING STUDIES: CT of the head is negative. Chest x-ray is negative. ASSESSMENT: Alcoholism and weakness. PLAN: The patient will be admitted. We will consult Neurology. Replace his potassium. PT and OT, home meds, DVT prophylaxis. I told him to quit drinking. KENJI TATE DO DR: RAJWINDER/artemio JOB#: [id number] / [id number]
[2019-04-07 15:00] VITALS: BP 96/53
[2019-04-07] MEDS ORDERED: THIAMINE INJ 500 MG in IV DEXTROSE 5% 50 ML IV ONE (16:30)
--- NOTE | 2019-04-07 16:38 | PDOC2 ---
NEUROLOGY CONSULT Date of Admission Date of Admission DATE: 04/07/19 TIME: 16:23 Reason for Consult Reason for Consult: IMPRESSION: Generalized weakness, worse x 1 week. Gait instability. Alcohol intoxication. 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 Hypokalemia, K+ 2.6 CAD. HTN. HLD. AAA. S/p cardiac stents. S/p illic stent. Chronic heavy drinking. Obesity. RECOMMENDATIONS/PLAN: T/L spine CT. MRI reportedly contraindicated. Vit B1 500 mg IV x 1. Vit B1 100 mg daily. ASA 162 mg daily. Lab: see orders. Treat medical diseases. Patient education for alcohol abstinence. OT/PT. Discussed with his brother and [id number] at bedside on 04/07/19. HISTORY OF THE PRESENT ILLNESS: This is a 63 -year-old male patient with past medical history significant for iliac stents and carotid stents who presented secondary to progressive weakness over the past 1 week with falls. Patient stated that he saw his primary care physician 2 days ago and was started on OxyContin for chronic pain. He reported some increasing gait disturbance over the past week and stated that he normally gets around without assisted devices but he has had trouble recently even using a walker. He drinks 5-6 drinks 6 Oz each time of Vodak daily for many years. PAST MEDICAL HISTORY: Anxiety, CAD, Depression, High Cholesterol, Hypertension, AAA (3.5cm), FELTER TENNIS BALLS (RETINOPATHY) PAST SURGERY HISTORY: Hip Replacement, Tonsillectomy, cardiac and carotid stents, Retina surgery 12/20/17 ALLERGY: NKDA MEDICATIONS: Refer to [facility] FAMILY HISTORY: Non contributory. SOCIAL HISTORY: Smoking Status: Former Smoker Alcohol Use: Heavy Drug Use: None REVIEW OF SYSTEMS: Constitutional: Obese.. Head: No traumatic brain or head injury. Skin: No edema, or rash. Ear: No infection. Eyes: No vision loss or color blindness. Nose: No bleeding or purulent discharges. Hearing: Hearing decrease. Neck: No injury. Cardiac: CAD, s/p stents placement, HTN, HLD. Pulmonary: No pneumonia, COPD. GI: No GI ulcer, GI bleeding. Urinary/genital: No dysuria, incontinence, urinary retention. Endocrinologic: Obesity. Skeletomuscular: Generalized weakness. Neurological: see HP. Psychiatric: Alcohol use/abuse. Otherwise, not [id number] review of systems. PHYSICAL EXAMINATION: General appearance is in subacute distress. HEENT: Normocephalic and nontraumatic. Eyes, nose, ears, and throat are unremarkable. Neck is supple. No lymphadenopathy. No crepitus. Cardiovascular: S1, S2, regular rate and rhythm. Pulmonary: Clear to auscultation bilaterally. Abdomen: Bowel sounds are positive. Extremities: No rash, lesions, or edema. No restriction of range of motion NEUROLOGICAL EXAMINATION: Alert Partially oriented to time, place and person. PERRL. EOMI. CN: no focal findings. Muscle tone: within normal. Muscle strength: 5- DTR: 2 UE, 0-1 LE Plantar reflex: Flexor response bilaterally Gait: not examined in bed. Sensory exam: decreased in LE. No obvious cerebellar signs elicited. F-T-N test fine. Current Medications Current Medications Current Medications Sodium Chloride 500 ml @ 500 mls/hr 1X ONCE IV Last administered on 04/06/19at 15:13; Start 04/06/19 at 14:45; Stop 04/06/19 at 15:44; Status DC Thiamine HCl 100 mg/Dextrose 51 ml @ 102 mls/hr 1X ONCE IV Last administered on 04/06/19at 16:25; Start 04/06/19 at 15:00; Stop 04/06/19 at 15:29; Status DC Potassium Chloride (Klor-Con) 40 meq 1X ONCE PO Last administered on 04/06/19at 16:34; Start 04/06/19 at 16:30; Stop 04/06/19 at 16:31; Status DC Aspirin (Children'S Aspirin) 324 mg 1X ONCE PO Last administered on 04/06/19at 16:33; Start 04/06/19 at 16:30; Stop 04/06/19 at 16:31; Status DC Potassium Chloride/Water 100 ml @ 100 mls/hr Q1H IV Last administered on 04/06/19at 19:15; Start 04/06/19 at 17:00; Stop 04/06/19 at 18:59; Status DC Alprazolam (Xanax) 1 mg TID PRN PO ANXIETY / AGITATION Last administered on 04/07/19at 09:41; Start 04/06/19 at 20:30 Clopidogrel Bisulfate (Plavix) 75 mg DAILY PO Last administered on 04/07/19at 09:32; Start 04/07/19 at 09:00 Acetaminophen/ Hydrocodone Bitart (Lortab 7.5/325) 1 tab Q6HRS PRN PO PAIN Last administered on 04/07/19 09:33; Start 04/06/19 at 20:30 Hydrocortisone Acetate (Anucort-Hc) 25 mg Q12HR PRN [place] hemorrhoids; Start 04/06/19 at 20:30 Latanoprost (Xalatan) 1 drop QHS OU Last administered on 04/06/19 21:41; Start 04/06/19 at 21:00; Stop 04/07/19 at 00:53; Status DC Losartan Potassium (Cozaar) 50 mg DAILY PO Last administered on 04/07/19 09:32; Start 04/07/19 at 09:00 Sucralfate (Carafate) 1 gm QIDPMEDS PO Last administered on 04/07/19 09:32; S tart 04/06/19 at 22:00 Dorzolamide HCl (Trusopt) 1 drop QHS OU Last administered on 04/06/19 21:41; Start 04/06/19 at 21:00 Fenofibrate (Lofibra) 134 mg DAILY PO Last administered on 04/07/19 09:32; Start 04/07/19 at 09:00 Nifedipine (Procardia Xl) 30 mg QHS PO ; Start 04/06/19 at 21:00; Stop 04/06/19 at 20:38; Status DC Pantoprazole Sodium (Protonix) 40 mg DAILYAC PO Last administered on 04/07/19 09:33; Start 04/07/19 at 07:30 Ondansetron HCl (Zofran Odt) 4 mg PRN Q6HRS PRN PO NAUSEA/VOMITING; Start 04/06/19 at 20:45 Oxycodone HCl (OxyCONTIN) 20 mg Q12HR PO Last administered on 04/07/19 09:33; Start 04/06/19 at 21:00 Nifedipine (Procardia Xl) 90 mg QHS PO Last administered on 04/06/19 21:41; Start 04/06/19 at 21:00 Timolol Maleate (Timoptic 0.5% [facility]) 1 drop QHS OU Last administered on 04/06/19 21:42; Start 04/06/19 at 21:00 Latanoprost (Xalatan) 1 drop BID OU Last administered on 04/07/19at 09:34; Start 04/07/19 at 09:00 Nicotine (Nicoderm Cq 14mg) 1 patch DAILY TD Last administered on 04/07/19at 11:44; Start 04/07/19 at 11:00 Potassium Chloride (Klor-Con) 40 meq 1X ONCE PO Last administered on 04/07/19at 11:44; Start 04/07/19 at 11:15; Stop 04/07/19 at 11:16; Status DC Active Scripts Active Hydrocodone-Apap 7.5-325 (Hydrocodone Bit/Acetaminophen) 1 Each Tablet 1 Tab PO Q6HRS PRN Reported Omeprazole 40 Mg Capsule.dr 40 Mg PO DAILY Cosopt Eye Drops (Dorzolamide Hcl/Timolol Maleat) 10 Ml Drops 10 Ml OP HS Latanoprost 2.5 Ml Drops 2.5 Ml OP BID Hydrocortisone Acetate 25 Mg Supp.rect 25 Mg [place] Q12HR PRN Ondansetron Hcl 4 Mg Tablet 4 Mg PO Q6HRS PRN Oxycontin (Oxycodone HCl) 20 Mg Tab.er.12h 20 Mg PO BID PRN Carafate (Sucralfate) 1 Gm Tablet 1 Tab PO QID 30 Days Xanax (Alprazolam) 1 Mg Tablet 1 Tab PO TID PRN Procardia Xl (Nifedipine) 90 Mg Tab.er.24 1 Tab PO QHS Fenofibrate (Fenofibrate Nanocrystallized) 145 Mg Tablet 1 Tab PO DAILY Clopidogrel (Clopidogrel Bisulfate) 75 Mg Tablet 1 Tab PO DAILY Losartan Potassium 50 Mg Tablet 50 Mg PO DAILY Allergies Allergies: Allergies Coded Allergies Type Severity Reaction Last Updated Verified No Known Drug Allergies 07/07/16 No ROS Review of System The patient denies any associated fevers, chills, headache, ear pain, rhinorrhea, sore throat, stiff neck, productive cough, chest pain, shortness of breath, back or flank pain, abdominal pain, nausea, vomiting, diarrhea, constipation, dysuria, rash, numbness, weakness, tingling, incontinence, difficulty ambulating, or diaphoresis. Physical Exam Physical Exam General: Well developed, well nourished, no acute distress, well appearing HEENT: Pupils equally round and reactive to light, EOMI, no discharge, normal conjunctiva Neck: Supple, no nuchal rigidity, no JVD, trachea midline, no tenderness Cardiac: RRR, no murmurs, no gallops, no rubs Chest/Lungs: CTAB, no wheeze, no rhonchi, no crackles Abdomen: soft, non-distended, no guarding, no peritoneal signs, non-tender Back: No tenderness Extremities: no edema, pulses intact, non-tender,capillary refill <3 sec bilateral upper and lower extremities, Neuro: Alert and oriented x 4, no focal deficits, normal speech Vitals Vitals: Vital Signs Date Time Temp Pulse Resp B/P (MAP) Pulse Ox O2 Delivery O2 Flow Rate FiO2 04/07/19 15:00 98.3 84 16 96/53 (67) 96 Room Air 98.3 Labs Labs Laboratory Tests Test 04/06/19 14:49 04/06/19 17:55 04/06/19 18:30 04/07/19 00:15 White Blood Count 5.6 x10^3/uL (4.0-11.0) Red Blood Count 3.71 x10^6/uL (4.30-5.70) Hemoglobin 12.8 g/dL (13.0-17.5) Hematocrit 37.6 % (39.0-53.0) Mean Corpuscular Volume 101 fL (79-100) Mean Corpuscular Hemoglobin 35 pg (25-35) Mean Corpuscular Hemoglobin Concent 34 g/dL (31-37) Red Cell Distribution Width 14.8 % (11.5-14.5) Platelet Count 209 x10^3/uL (140-400) Neutrophils (%) (Auto) 77 % (31-73) Lymphocytes (%) (Auto) 14 % (24-48) Monocytes (%) (Auto) 8 % (0-9) Eosinophils (%) (Auto) 0 % (0-3) Basophils (%) (Auto) 0 % (0-3) Neutrophils # (Auto) 4.4 x10^3/uL (1.8-7.7) Lymphocytes # (Auto) 0.8 x10^3/uL (1.0-4.8) Monocytes # (Auto) 0.4 x10^3/uL (0.0-1.1) Eosinophils # (Auto) 0.0 x10^3/uL (0.0-0.7) Basophils # (Auto) 0.0 x10^3/uL (0.0-0.2) Sodium Level 137 mmol/L (136-145) Potassium Level 2.7 mmol/L (3.5-5.1) Chloride Level 97 mmol/L (98-107) Carbon Dioxide Level 27 mmol/L (21-32) Anion Gap 13 (6-14) Blood Urea Nitrogen 7 mg/dL (8-26) Creatinine 1.1 mg/dL (0.7-1.3) Estimated GFR (Cockcroft-Gault) 67.6 BUN/Creatinine Ratio 6 (6-20) Glucose Level 105 mg/dL (70-99) Calcium Level 8.8 mg/dL (8.5-10.1) Total Bilirubin 1.0 mg/dL (0.2-1.0) Aspartate Amino Transf (AST/SGOT) 86 U/L (15-37) Alanine Aminotransferase (ALT/SGPT) 38 U/L (16-63) Alkaline Phosphatase 93 U/L (46-116) Myoglobin 300 ng/mL (16-96) Troponin I Quantitative 0.040 ng/mL (0.000-0.055) < 0.017 ng/mL (0.000-0.055) 0.020 ng/mL (0.000-0.055) AR-Lxn-O-Type Natriuretic Peptide 305 pg/mL (0-124) Total Protein 6.1 g/dL (6.4-8.2) Albumin 3.0 g/dL (3.4-5.0) Albumin/Globulin Ratio 1.0 (1.0-1.7) Ethyl Alcohol Level 35 mg/dL (0-10) Urine Collection Type Unknown Urine Color Yellow Urine Clarity Clear Urine pH 6.5 Urine Specific [place] <=1.005 Urine Protein Negative mg/dL (NEG-TRACE) Urine Glucose (UA) Negative mg/dL (NEG) Urine Ketones (Stick) Negative mg/dL (NEG) Urine Blood Negative (NEG) Urine Nitrite Negative (NEG) Urine Bilirubin Negative (NEG) Urine Urobilinogen Dipstick 1.0 mg/dL (0.2 mg/dL) Urine Leukocyte Esterase Negative (NEG) Urine RBC 0 /HPF (0-2) Urine WBC 0 /HPF (0-4) Urine Squamous Epithelial Cells Occ /LPF Urine Bacteria 0 /HPF (0-FEW) Urine Sperm Present /HPF Test 04/07/19 06:50 Sodium Level 144 mmol/L (136-145) Potassium Level 3.0 mmol/L (3.5-5.1) Chloride Level 104 mmol/L (98-107) Carbon Dioxide Level 33 mmol/L (21-32) Anion Gap 7 (6-14) Blood Urea Nitrogen 7 mg/dL (8-26) Creatinine 0.9 mg/dL (0.7-1.3) Estimated GFR (Cockcroft-Gault) 85.2 Glucose Level 93 mg/dL (70-99) Calcium Level 8.5 mg/dL (8.5-10.1) Creatine Kinase 275 U/L (39-308) Troponin I Quantitative 0.020 ng/mL (0.000-0.055) Thyroid Stimulating Hormone (TSH) 1.479 uIU/mL (0.358-3.74) Laboratory Tests Test 04/06/19 17:55 04/06/19 18:30 04/07/19 00:15 04/07/19 06:50 Urine Collection Type Unknown Urine Color Yellow Urine Clarity Clear Urine pH 6.5 Urine Specific [place] <=1.005 Urine Protein Negative mg/dL (NEG-TRACE) Urine Glucose (UA) Negative mg/dL (NEG) Urine Ketones (Stick) Negative mg/dL (NEG) Urine Blood Negative (NEG) Urine Nitrite Negative (NEG) Urine Bilirubin Negative (NEG) Urine Urobilinogen Dipstick 1.0 mg/dL (0.2 mg/dL) Urine Leukocyte Esterase Negative (NEG) Urine RBC 0 /HPF (0-2) Urine WBC 0 /HPF (0-4) Urine Squamous Epithelial Cells Occ /LPF Urine Bacteria 0 /HPF (0-FEW) Urine Sperm Present /HPF Troponin I Quantitative < 0.017 ng/mL (0.000-0.055) 0.020 ng/mL (0.000-0.055) 0.020 ng/mL (0.000-0.055) Sodium Level 144 mmol/L (136-145) Potassium Level 3.0 mmol/L (3.5-5.1) Chloride Level 104 mmol/L (98-107) Carbon Dioxide Level 33 mmol/L (21-32) Anion Gap 7 (6-14) Blood Urea Nitrogen 7 mg/dL (8-26) Creatinine 0.9 mg/dL (0.7-1.3) Estimated GFR (Cockcroft-Gault) 85.2 Glucose Level 93 mg/dL (70-99) Calcium Level 8.5 mg/dL (8.5-10.1) Creatine Kinase 275 U/L (39-308) Thyroid Stimulating Hormone (TSH) 1.479 uIU/mL (0.358-3.74) YOVANI DE LA TORRE MD Apr 07, 2019 16:38
--- NOTE | 2019-04-07 18:12 | RAD ---
CT thoracic spine without contrast. CT lumbar spine without contrast. PQRS statement: CT scans at this facility use dose reduction including either automated exposure control, iterative reconstructions, and /or weight based radiation dosing via mA and kV modification when appropriate to reduce radiation dose to as low as reasonably achievable. HISTORY: Upper extremity and lower extremity weakness. Thoracic spine findings: Thoracic vertebral body height and alignment intact. No fracture. No spondylolysis defect. No lytic or sclerotic bony lesion. Bulky facet spurs lower thoracic spine contributing to spinal canal lateral recess stenoses moderate severe degree at T8-T9 and T9-10 and a mild degree at T10-T11. Anterior disc ossified in the lower thoracic spine. Coronary calcified plaque. Paraspinal tissues are unremarkable. Thoracic spine impression: 1. No acute osseous injury. 2. Thoracic disc disease and facet arthritis as described above. CT lumbar spine findings: Slight dextroconvex lumbar scoliosis. Lumbar vertebral body height and alignment intact. No fracture lumbar spine. No spondylolysis defect. Partial ankylosis sacroiliac joints typical of chronic sacroiliitis. Abdominal aorta aneurysm extends outside the [id number] has a diameter of at least 3.5 cm it is possible there is an intraluminal calcified dissection flap. Right common iliac artery stent. Paraspinal tissues unremarkable. Hypodense liver likely fatty. Disc bulges and endplate and facet spurring likely contributes to moderate to severe spinal canal stenoses at L3-4 L4-5 and mild spinal canal stenosis at L2-L3. There are probable moderate severe neural foraminal stenoses up to 3 through L5-S1. Lumbar spine impression: 1. No acute osseous injury of the lumbar spine. 2. Abdominal aortic aneurysm diameter at least 3.5 cm as described above. 3. Lumbar disc disease and arthritic change as described above. 4. Ankylosis of the sacroiliac joints typical of chronic sacroiliitis. Electronically signed by: Johnathan Sandy MD (04/07/2019 6:09 PM) [id number]
[2019-04-07 19:35] VITALS: BP 112/63
[2019-04-07] MEDS: DORZOLAMIDE 2% OPHTH SOLUTION 10ML BOTTLE. OU SCH (20:42)
[2019-04-07] MEDS: TIMOLOL 0.5% OPHTH SOLUTION 5ML BOTTLE. OU SCH (20:44)
[2019-04-07 23:15] VITALS: BP 129/74
[2019-04-08 03:30] VITALS: BP 128/65
[2019-04-08] MEDS: HYDROcodone/APAP 7.5/325MG 1 TAB TABLET PO PRN ×3 (04:31→17:09)
[2019-04-08 07:55] VITALS: BP 137/69
[2019-04-08] MEDS: ALPRAZolam 1 MG TABLET PO PRN (09:00)
[2019-04-08] MEDS: PANTOPRAZOLE 40 MG TABLET.DR. PO SCH (09:00)
[2019-04-08] MEDS: CLOPIDOGREL BISULFATE 75 MG TABLET PO SCH (09:00)
[2019-04-08] MEDS: LOSARTAN POTASSIUM 25 MG TABLET. PO SCH (09:01)
[2019-04-08] MEDS: THIAMINE 100 MG TABLET. PO SCH (09:01)
[2019-04-08] MEDS: oxyCODONE ER 10 MG TAB.ER.12H PO SCH ×2 (09:01→20:29)
[2019-04-08] MEDS: NICOTINE 14MG PATCH. TD SCH (09:01)
[2019-04-08] MEDS: FENOFIBRATE,MICRONIZED 134 MG CAPSULE PO SCH (09:02)
[2019-04-08] MEDS: LATANOPROST 0.005% OPHTH SOLUTION 2.5ML BOTTLE. OU SCH ×2 (09:02→20:30)
[2019-04-08] MEDS: SUCRALFATE 1 GM TABLET. PO SCH ×4 (10:00→22:00)
[2019-04-08 11:11] VITALS: BP 124/74
--- NOTE | 2019-04-08 13:00 | PDOC ---
[facility] PROGRESS NOTE Chief Complaint Chief Complaint Severe weakness of undetermined etiology Alcoholism, CAD, anxiety, depression, hyperlipidemia, hypertension, AAA at 3.5 cm, retinopathy, hip replacement, tonsillectomy, cardiac stents, carotid stents, retinal surgery, previous tobacco abuse. History of Present Illness History of Present Illness [id number] Patient seen and examined He is resting with no apparent distress I reviewed neurology's note Appreciate neurology input Discussed with RN Vitals/I&O Vitals/I&O: Vital Signs Date Time Temp Pulse Resp B/P (MAP) Pulse Ox O2 Delivery O2 Flow Rate FiO2 04/08/19 11:11 97.7 103 18 124/74 (91) 95 Room Air 97.7 I & O 04/07/19 04/07/19 04/08/19 15:00 23:00 07:00 Intake Total 400 ml 450 ml 500 ml Output Total 425 ml Balance 400 ml 450 ml 75 ml Physical Exam General: No acute distress Heart: Regular rate, Normal S1, Normal S2, No murmurs Lungs: Clear Abdomen: Normal bowel sounds, Soft Extremities: No clubbing, No cyanosis Skin: No rashes Assessment and Plan Assessmemt and Plan Problems Medical Problems: (1) Alcohol abuse Status: Acute (2) Altered gait Status: Acute (3) Elevated brain natriuretic peptide (BNP) level Status: Acute (4) Hypokalemia Status: Acute (5) Weakness Status: Acute Severe weakness of undetermined etiology Alcoholism, CAD, anxiety, depression, hyperlipidemia, hypertension, AAA at 3.5 cm, retinopathy, hip replacement, tonsillectomy, cardiac stents, carotid stents, retinal surgery, previous tobacco abuse. Plan Alcohol withdrawal protocol I have consulted neurology Neurologic workup per neurology (please see her consult note) Home meds DVT prophylaxis Trend labs PT OT Full code Comment Review of Relevant I have reviewed the following items [place] (where applicable) has been applied. Medications: Current Medications Medications (Trade) Dose Ordered Sig/Nicolás Route PRN Reason Start Time Stop Time Status Last Admin Dose Admin Thiamine HCl 500 mg/Dextrose 55 ml @ 102 mls/hr 1X ONCE IV 04/07/19 16:30 04/07/19 17:02 DC 04/07/19 18:06 Thiamine Mononitrate (Vitamin B-1) 100 mg DAILY PO 04/08/19 09:00 04/08/19 09:01 KENJI TATE III DO Apr 08, 2019 13:00
[2019-04-08 15:47] VITALS: BP 134/71
--- NOTE | 2019-04-08 16:28 | RAD ---
CT cervical spine without contrast PQRS statement: CT scans at this facility use dose reduction including either automated exposure control, iterative reconstructions, and /or weight based radiation dosing via mA and kV modification when appropriate to reduce radiation dose to as low as reasonably achievable. HISTORY: Upper extremity weakness. Lower extremity weakness. FINDINGS: Craniocervical junction intact. Cervical vertebral body height and alignment intact. No fracture of the cervical spine. No lytic or sclerotic bone lesion. 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 Left carotid artery stent. Right carotid artery endarterectomy. Multilevel cervical disc height loss, soft disc bulges as well as uncovertebral and facet spurs at several levels and bulky disc osteophytes and uncovertebral spurs at C5-C6 and C6-C7 with multilevel spinal canal and neural foraminal stenoses, with severe stenotic disease at C5-6 and C6-7. The extent of canal stenosis as well as potential nerve impingement or spinal cord compression would be more definitively assessed with MR imaging. IMPRESSION: No acute osseous injury of the cervical spine. Congenital narrow cervical spinal canal combined with disc disease and arthritic change contributes to multilevel spinal canal and neural foraminal stenoses as detailed above. Electronically signed by: Johnathan Sandy MD (04/08/2019 4:25 PM) [id number]
--- NOTE | 2019-04-08 17:05 | PDOC ---
PROGRESS NOTES Assessment Assessment Generalized weakness, worse x 1 week. Gait instability. C-spine stenosis. Alcohol intoxication. 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 Hypokalemia, K+ 2.6 CAD. HTN. HLD. AAA. S/p cardiac stents. S/p illic stent. Chronic heavy drinking. Obesity. RECOMMENDATIONS/PLAN: MRI reportedly contraindicated. Vit B1 500 mg IV x 1. Vit B1 100 mg daily. ASA 162 mg daily. Treat medical diseases. Please consult NS, Dr. Shahid. Patient education for alcohol abstinence. OT/PT. HISTORY OF THE PRESENT ILLNESS: This is a 63 -year-old male patient with past medical history significant for iliac stents and carotid stents who presented secondary to prog ressive weakness over the past 1 week with falls. Patient stated that he saw his primary care physician 2 days ago and was started on OxyContin for chronic pain. He reported some increasing gait disturbance over the past week and stated that he normally gets around without assisted devices but he has had trouble recently even using a walker. He drinks 5-6 drinks 6 Oz each time of Vodak daily for many years. PAST MEDICAL HISTORY: Anxiety, CAD, Depression, High Cholesterol, Hypertension, AAA (3.5cm), [employer] OFF[employer] (RETINOPATHY) PAST SURGERY HISTORY: Hip Replacement, Tonsillectomy, cardiac and carotid stents, Retina surgery 12/20/17 ALLERGY: NKDA MEDICATIONS: Refer to [facility] FAMILY HISTORY: Non contributory. SOCIAL HISTORY: Smoking Status: Former Smoker Alcohol Use: Heavy Drug Use: None REVIEW OF SYSTEMS: Constitutional: Obese.. Head: No traumatic brain or head injury. Skin: No edema, or rash. Ear: No infection. Eyes: No vision loss or color blindness. Nose: No bleeding or purulent discharges. Hearing: Hearing decrease. Neck: No injury. Cardiac: CAD, s/p stents placement, HTN, HLD. Pulmonary: No pneumonia, COPD. GI: No GI ulcer, GI bleeding. Urinary/genital: No dysuria, incontinence, urinary retention. Endocrinologic: Obesity. Skeletomuscular: Generalized weakness. Neurological: see HP. Psychiatric: Alcohol use/abuse. Otherwise, not [id number] review of systems. PHYSICAL EXAMINATION: General appearance is in subacute distress. HEENT: Normocephalic and nontraumatic. Eyes, nose, ears, and throat are unremarkable. Neck is supple. No lymphadenopathy. No crepitus. Cardiovascular: S1, S2, regular rate and rhythm. Pulmonary: Clear to auscultation bilaterally. Abdomen: Bowel sounds are positive. Extremities: No rash, lesions, or edema. No restriction of range of motion NEUROLOGICAL EXAMINATION: Alert Partially oriented to time, place and person. PERRL. EOMI. CN: no focal findings. Muscle tone: within normal. Muscle strength: 4+ DTR: 2 UE, 0-1 LE Plantar reflex: Flexor response bilaterally Gait: not examined in bed. Sensory exam: decreased in LE. No obvious cerebellar signs elicited. F-T-N test fine. No repetitive fatigability elicited. Objective Objective Vital Signs Date Time Temp Pulse Resp B/P (MAP) Pulse Ox O2 Delivery O2 Flow Rate FiO2 04/08/19 15:47 97.9 84 18 134/71 (92) 94 Room Air 97.9 Intake and Output 04/08/19 07:00 Intake Total 1350 ml Output Total 425 ml Balance 925 ml Intake Oral 1350 ml Output Urine Total 425 ml # Voids 2 # Bowel Movements 1 Vitals Signs Vitals VS - Last 72 Hours, by Label Date Time Temp Pulse Resp B/P (MAP) Pulse Ox O2 Delivery O2 Flow Rate FiO2 04/08/19 15:47 97.9 84 18 134/71 (92) 94 Room Air 97.9 04/08/19 13:03 95 Room Air 04/08/19 11:11 97.7 103 18 124/74 (91) 95 Room Air 97.7 04/08/19 10:14 95 Room Air 04/08/19 09:01 98 Room Air 04/08/19 09:01 95 137/69 04/08/19 09:00 98 Room Air 04/08/19 08:00 Room Air 04/08/19 07:55 97.6 95 18 137/69 (91) 98 Room Air 97.6 04/08/19 03:30 98.0 82 18 128/65 (86) 93 Room Air 98.0 04/07/19 23:15 98.2 82 18 129/74 (92) 95 Room Air 98.2 04/07/19 20:46 80 112/63 04/07/19 19:35 97.7 80 20 112/63 (79) 92 Room Air 97.7 04/07/19 17:22 96 Room Air 04/07/19 16:21 96 Room Air 04/07/19 15:00 98.3 84 16 96/53 (67) 96 Room Air 98.3 04/07/19 13:47 94 Room Air 04/07/19 11:00 98.0 80 12 101/67 (78) 94 Room Air 98.0 04/07/19 10:54 92 Room Air 04/07/19 09:33 92 Room Air 04/07/19 09:33 92 Room Air 04/07/19 09:32 89 129/70 04/07/19 08:00 Room Air 04/07/19 07:00 98.0 89 20 129/70 (89) 92 Room Air 98.0 Medication Medications Current Medications Thiamine Mononitrate (Vitamin B-1) 100 mg DAILY PO Last administered on 04/08/19at 09:01; Start 04/08/19 at 09:00 Comment Review of Relevant I have reviewed the following items [place] (where applicable) has been applied. YOAVNI DE LA TORRE MD Apr 08, 2019 17:05
[2019-04-08 19:33] VITALS: BP 158/60
[2019-04-08] MEDS: TIMOLOL 0.5% OPHTH SOLUTION 5ML BOTTLE. OU SCH (20:30)
[2019-04-08] MEDS: DORZOLAMIDE 2% OPHTH SOLUTION 10ML BOTTLE. OU SCH (20:30)
[2019-04-08 23:51] VITALS: BP 147/84
[2019-04-09] MEDS: ALPRAZolam 1 MG TABLET PO PRN ×3 (00:09→21:35)
[2019-04-09] MEDS: HYDROcodone/APAP 7.5/325MG 1 TAB TABLET PO PRN ×2 (00:09→18:37)
[2019-04-09 03:16] VITALS: BP 127/76
[2019-04-09 07:00] VITALS: BP 168/89
[2019-04-09] MEDS: oxyCODONE ER 10 MG TAB.ER.12H PO SCH ×2 (08:44→21:34)
[2019-04-09] MEDS: NICOTINE 14MG PATCH. TD SCH (08:44)
[2019-04-09] MEDS: CLOPIDOGREL BISULFATE 75 MG TABLET PO SCH (08:45)
[2019-04-09] MEDS: FENOFIBRATE,MICRONIZED 134 MG CAPSULE PO SCH (08:45)
[2019-04-09] MEDS: PANTOPRAZOLE 40 MG TABLET.DR. PO SCH (08:45)
[2019-04-09] MEDS: SUCRALFATE 1 GM TABLET. PO SCH ×4 (08:46→21:35)
[2019-04-09] MEDS: THIAMINE 100 MG TABLET. PO SCH (08:46)
[2019-04-09] MEDS: LATANOPROST 0.005% OPHTH SOLUTION 2.5ML BOTTLE. OU SCH ×2 (08:46→21:35)
[2019-04-09] MEDS: LOSARTAN POTASSIUM 25 MG TABLET. PO SCH (08:46)
[2019-04-09 11:00] VITALS: BP 128/82
--- NOTE | 2019-04-09 11:43 | PDOC ---
[facility] [facility] PROGRESS NOTE Chief Complaint Chief Complaint Severe weakness of undetermined etiology Alcoholism, CAD, anxiety, depression, hyperlipidemia, hypertension, AAA at 3.5 cm, retinopathy, hip replacement, tonsillectomy, cardiac stents, carotid stents, retinal surgery, previous tobacco abuse. History of Present Illness History of Present Illness [id number] Patient seen and examined He is resting with no apparent distress I reviewed neurology's note Appreciate neurology input Discussed with RN 04-09-2019 Patient Seen and Examined. Discussed Neurological findings, Discussed Alcohol use effects on the patient's body including alcohol neuropathy being experienced. Will Start EtOH withdrawal protocol. Pt showed interest in being placed in a [facility] home. Will talk with social work towards that placement. Discharge possibly tomorrow, disposition pending. Vitals/I&O Vitals/I&O: Vital Signs Date Time Temp Pulse Resp B/P (MAP) Pulse Ox O2 Delivery O2 Flow Rate FiO2 04/09/19 08:46 82 168/89 04/09/19 08:44 94 Room Air 04/09/19 07:00 98.0 16 98.0 I & O 04/08/19 04/08/19 04/09/19 15:00 23:00 07:00 Intake Total 300 ml 580 ml 400 ml Output Total 900 ml 600 ml Balance 300 ml -320 ml -200 ml Physical Exam General: No acute distress Heart: Regular rate, Normal S1, Normal S2, No murmurs Lungs: Clear Abdomen: Normal bowel sounds, Soft Extremities: No clubbing, No cyanosis Skin: No rashes Assessment and Plan Assessmemt and Plan Problems Medical Problems: (1) Alcohol abuse Status: Acute (2) Altered gait Status: Acute (3) Elevated brain natriuretic peptide (BNP) level Status: Acute (4) Hypokalemia Status: Acute (5) Weakness Status: Acute Plan 1. Start Alcohol withdrawal protocol 2. Contact Social work and work on possible discharge to [facility] home 3. Appreciate Neuro Consult 4. Add PT/OT 5. Discharge Disposition Pending Comment Review of Relevant I have reviewed the following items [place] (where applicable) has been applied. KENJI TATE III DO Apr 09, 2019 11:43
--- NOTE | 2019-04-09 11:47 | PDOC ---
PROGRESS NOTES Assessment Problems Medical Problems: (1) Alcohol abuse Status: Acute (2) Altered gait Status: Acute (3) Elevated brain natriuretic peptide (BNP) level Status: Acute (4) Hypokalemia Status: Acute (5) Weakness Status: Acute I follow him in the clinic for: Left atypical facial pain, failure on numerous medications and nerve blocks from Dr. 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 Chronic back pain worse for the past several days. I last saw him on 04/04 and reluctantly started him on OxyContin after consultation with Dr. Nguyễn, pain management anesthesiologist. Now admitted with: Generalized weakness, worse x 1 week. Gait instability. Cervical-spine stenosis. Alcohol intoxication, chronic alcoholism. 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 Hypokalemia, K+ 2.6 CAD. HTN. HLD. AAA. S/p cardiac stents. S/p illic stent, cannot have MRI. Obesity. Plan Vit B1 ASA 162 mg daily. Treat medical diseases. Neurosurgery consulted, Dr. Shahid, I do not believe the patient has any surgical lesion. Patient education for alcohol abstinence. OT/PT. Continue to follow up as outpatient with Dr. Nguyễn, pain management Subjective Still has severe back and cervical pain Objective Vital Signs Date Time Temp Pulse Resp B/P (MAP) Pulse Ox O2 Delivery O2 Flow Rate FiO2 04/09/19 08:46 82 168/89 04/09/19 08:44 94 Room Air 04/09/19 07:00 98.0 16 98.0 Intake and Output 04/09/19 07:00 Intake Total 1280 ml Output Total 1500 ml Balance -220 ml Intake Oral 1280 ml Output Urine Total 1500 ml PHYSICAL EXAM Alert. Oriented to time, place and person. PERRL. EOMI. CN: no focal findings. Muscle tone: normal. Muscle strength: 4+/5 DTR: 1+ Plantar reflex: flexor Gait: not examined in bed. Sensory exam: no abnormal findings. No cerebellar signs elicited. Review of Relevant I have reviewed the following items [place] (where applicable) has been applied. Medications Current Medications Sodium Chloride 500 ml @ 500 mls/hr 1X ONCE IV Last administered on 04/06/19at 15:13; Start 04/06/19 at 14:45; Stop 04/06/19 at 15:44; Status DC Thiamine HCl 100 mg/Dextrose 51 ml @ 102 mls/hr 1X ONCE IV Last administered on 04/06/19 16:25; Start 04/06/19 at 15:00; Stop 04/06/19 at 15:29; Status DC Potassium Chloride (Klor-Con) 40 meq 1X ONCE PO Last administered on 04/06/19 16:34; Start 04/06/19 at 16:30; Stop 04/06/19 at 16:31; Status DC Aspirin (Children'S Aspirin) 324 mg 1X ONCE PO Last administered on 04/06/19 16:33; Start 04/06/19 at 16:30; Stop 04/06/19 at 16:31; Status DC Potassium Chloride/Water 100 ml @ 100 mls/hr Q1H IV Last administered on 04/06/19 19:15; Start 04/06/19 at 17:00; Stop 04/06/19 at 18:59; Status DC Alprazolam (Xanax) 1 mg TID PRN PO ANXIETY / AGITATION Last administered on 04/09/19 08:53; Start 04/06/19 at 20:30 Clopidogrel Bisulfate (Plavix) 75 mg DAILY PO Last administered on 04/09/19 08:45; Start 04/07/19 at 09:00 Acetaminophen/ Hydrocodone Bitart (Lortab 7.5/325) 1 tab Q6HRS PRN PO PAIN Last administered on 04/09/19 00:09; Start 04/06/19 at 20:30 Hydrocortisone Acetate (Anucort-Hc) 25 mg Q12HR PRN [place] hemorrhoids; Start 04/06/19 at 20:30 Latanoprost (Xalatan) 1 drop QHS OU Last administered on 04/06/19at 21:41; Start 04/06/19 at 21:00; Stop 04/07/19 at 00:53; Status DC Losartan Potassium (Cozaar) 50 mg DAILY PO Last administered on 04/09/19 08:46; Start 04/07/19 at 09:00 Sucralfate (Carafate) 1 gm QIDPMEDS PO Last administered on 04/09/19 08:46; Start 04/06/19 at 22:00 Dorzolamide HCl (Trusopt) 1 drop QHS OU Last administered on 04/08/19 20:30; Start 04/06/19 at 21:00 Fenofibrate (Lofibra) 134 mg DAILY PO Last administered on 04/09/19 08:45; Start 04/07/19 at 09:00 Nifedipine (Procardia Xl) 30 mg QHS PO ; Start 04/06/19 at 21:00; Stop 04/06/19 at 20:38; Status DC Pantoprazole Sodium (Protonix) 40 mg DAILYAC PO Last administered on 04/09/19 08:45; Start 04/07/19 at 07:30 Ondansetron HCl (Zofran Odt) 4 mg PRN Q6HRS PRN PO NAUSEA/VOMITING; Start 04/06/19 at 20:45 Oxycodone HCl (OxyCONTIN) 20 mg Q12HR PO Last administered on 04/09/19 08:44; Start 04/06/19 at 21:00 Nifedipine (Procardia Xl) 90 mg QHS PO Last administered on 04/08/19 20:30; Start 04/06/19 at 21:00 Timolol Maleate (Timoptic 0.5% Ophth) 1 drop QHS OU Last administered on 04/08/19 20:30; Start 04/06/19 at 21:00 Latanoprost (Xalatan) 1 drop BID OU Last administered on 04/09/19 08:46; Start 04/07/19 at 09:00 Nicotine (Nicoderm Cq 14mg) 1 patch DAILY TD Last administered on 04/09/19 08:44; Start 04/07/19 at 11:00 Potassium Chloride (Klor-Con) 40 meq 1X ONCE PO Last administered on 04/07/19at 11:44; Start 04/07/19 at 11:15; Stop 04/07/19 at 11:16; Status DC Thiamine HCl 500 mg/Dextrose 55 ml @ 102 mls/hr 1X ONCE IV Last administered on 04/07/19at 18:06; Start 04/07/19 at 16:30; Stop 04/07/19 at 17:02; Status DC Thiamine Mononitrate (Vitamin B-1) 100 mg DAILY PO Last administered on 04/09/19 08:46; Start 04/08/19 at 09:00 Active Scripts Active Hydrocodone-Apap 7.5-325 (Hydrocodone Bit/Acetaminophen) 1 Each Tablet 1 Tab PO Q6HRS PRN Reported Omeprazole 40 Mg Capsule.dr 40 Mg PO DAILY Cosopt Eye Drops (Dorzolamide Hcl/Timolol Maleat) 10 Ml Drops 10 Ml OP HS Latanoprost 2.5 Ml Drops 2.5 Ml OP BID Hydrocortisone Acetate 25 Mg Supp.rect 25 Mg [place] Q12HR PRN Ondansetron Hcl 4 Mg Tablet 4 Mg PO Q6HRS PRN Oxycontin (Oxycodone HCl) 20 Mg Tab.er.12h 20 Mg PO BID PRN Carafate (Sucralfate) 1 Gm Tablet 1 Tab PO QID 30 Days Xanax (Alprazolam) 1 Mg Tablet 1 Tab PO TID PRN Procardia Xl (Nifedipine) 90 Mg Tab.er.24 1 Tab PO QHS Fenofibrate (Fenofibrate Nanocrystallized) 145 Mg Tablet 1 Tab PO DAILY Clopidogrel (Clopidogrel Bisulfate) 75 Mg Tablet 1 Tab PO DAILY Losartan Potassium 50 Mg Tablet 50 Mg PO DAILY Vitals/I & O Vital Sign - Last 24 Hours 04/08/19 04/08/19 04/08/19 04/08/19 13:03 15:47 17:09 18:38 Temp 97.9 97.9 Pulse 84 Resp 18 B/P (MAP) 134/71 (92) Pulse Ox 95 94 94 94 O2 Delivery Room Air Room Air Room Air Room Air 04/08/19 04/08/19 04/08/19 04/09/19 19:33 20:30 23:51 03:16 Temp 98.3 98.4 98.5 98.3 98.4 98.5 Pulse 85 84 80 86 Resp 18 18 18 B/P (MAP) 158/60 (92) 134/71 147/84 (105) 127/76 (93) Pulse Ox 90 97 95 O2 Delivery Room Air Room Air Room Air 04/09/19 04/09/19 04/09/19 04/09/19 07:00 08:00 08:44 08:46 Temp 98.0 98.0 Pulse 82 82 Resp 16 B/P (MAP) 168/89 (115) 168/89 Pulse Ox 94 94 O2 Delivery Room Air Room Air Room Air Intake and Output 04/08/19 04/08/19 04/09/19 15:00 23:00 07:00 Intake Total 300 ml 580 ml 400 ml Output Total 900 ml 600 ml Balance 300 ml -320 ml -[address] cervical spine without contrast PQRS statement: CT scans at this facility use dose reduction including either automated exposure control, iterative reconstructions, and /or weight based radiation dosing via mA and kV modification when appropriate to reduce radiation dose to as low as reasonably achievable. HISTORY: Upper extremity weakness. Lower extremity weakness. FINDINGS: Craniocervical junction intact. Cervical vertebral body height and alignment intact. No fracture of the cervical spine. No lytic or sclerotic bone lesion. 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 Left carotid artery stent. Right carotid artery endarterectomy. Multilevel cervical disc height loss, soft disc bulges as well as uncovertebral and facet spurs at several levels and bulky disc osteophytes and uncovertebral spurs at C5-C6 and C6-C7 with multilevel spinal canal and neural foraminal stenoses, with severe stenotic disease at C5-6 and C6-7. The extent of canal stenosis as well as potential nerve impingement or spinal cord compression would be more definitively assessed with MR imaging. IMPRESSION: No acute osseous injury of the cervical spine. Congenital narrow cervical spinal canal combined with disc disease and arthritic change contributes to multilevel spinal canal and neural foraminal stenoses as detailed above. CT thoracic spine without contrast. CT lumbar spine without contrast. PQRS statement: CT scans at this facility use dose reduction including either automated exposure control, iterative reconstructions, and /or weight based radiation dosing via mA and kV modification when appropriate to reduce radiation dose to as low as reasonably achievable. HISTORY: Upper extremity and lower extremity weakness. Thoracic spine findings: Thoracic vertebral body height and alignment intact. No fracture. No spondylolysis defect. No lytic or sclerotic bony lesion. Bulky facet spurs lower thoracic spine contributing to spinal canal lateral recess stenoses moderate severe degree at T8-T9 and T9-10 and a mild degree at T10-T11. Anterior disc ossified in the lower thoracic spine. Coronary calcified plaque. Paraspinal tissues are unremarkable. Thoracic spine impression: 1. No acute osseous injury. 2. Thoracic disc disease and facet arthritis as described above. CT lumbar spine findings: Slight dextroconvex lumbar scoliosis. Lumbar vertebral body height and alignment intact. No fracture lumbar spine. No spondylolysis defect. Partial ankylosis sacroiliac joints typical of chronic sacroiliitis. Abdominal aorta aneurysm extends outside the [id number] has a diameter of at least 3.5 cm it is possible there is an intraluminal calcified dissection flap. Right common iliac artery stent. Paraspinal tissues unremarkable. Hypodense liver likely fatty. Disc bulges and endplate and facet spurring likely contributes to moderate to severe spinal canal stenoses at L3-4 L4-5 and mild spinal canal stenosis at L2-L3. There are probable moderate severe neural foraminal stenoses up to 3 through L5-S1. Lumbar spine impression: 1. No acute osseous injury of the lumbar spine. 2. Abdominal aortic aneurysm diameter at least 3.5 cm as described above. 3. Lumbar disc disease and arthritic change as described above. 4. Ankylosis of the sacroiliac joints typical of chronic sacroiliitis. LEV HENRY MD Apr 09, 2019 11:47
--- NOTE | 2019-04-09 13:23 | PDOC ---
Provider Note Provider Note consulted for weakness, cervical stenosis c/o progressive unsteadiness with gait exam 4/5 hip flexor and quad, distally strength 5/5 [address] walker cervical CT suggests spinal stenosis he can not have an MRI discussed options he has no interest in cervical myelography or surgery at this time he would like PT Dr. Armstrong following AURA MEEKS MD Apr 09, 2019 13:23
[2019-04-09 14:59] VITALS: BP 132/74
[2019-04-09 19:36] VITALS: BP 157/79
[2019-04-09] MEDS: TIMOLOL 0.5% OPHTH SOLUTION 5ML BOTTLE. OU SCH (21:36)
[2019-04-09] MEDS: DORZOLAMIDE 2% OPHTH SOLUTION 10ML BOTTLE. OU SCH (21:37)
[2019-04-09 23:25] VITALS: BP 136/69
[2019-04-10 03:39] VITALS: BP 152/83
--- NOTE | 2019-04-10 03:52 | CONS ---
DATE OF CONSULTATION: 04/09/2019 ATTENDING PHYSICIAN: Nita Levin DO FAMILY PHYSICIAN: Neida Paulson MD REASON FOR CONSULTATION: The patient was seen at the request of Dr. Levin. HISTORY OF PRESENT ILLNESS: This is a 63-year-old male, admitted on 04/06/2019 with generalized weakness and multiple falls. The patient with known chronic ethanol abuse. The patient takes oxycodone for pain. He was found in the Emergency Room with hypokalemia and balance problems, elevated BNP. The patient with known coronary artery disease, anxiety, depression, hyperlipidemia, hypertension, abdominal aortic aneurysm at 3.5 cm, retinopathy, hip replacement, tonsillectomy, cardiac and carotid stents, retinal surgery, previous tobacco abuse, family history of alcoholism. He lives alone. Had washer and dryer in the basement. He uses a walker. He had multiple falls in the last few days. The patient denies any significant pain. The patient had radiological studies including CT scan cervical, thoracic, and lumbar spine, which revealed congenital narrow cervical spinal cord combined with disk disease and arthritic changes contributing to multilevel spinal canal and neural foraminal stenosis in the cervical spine. Lumbar spine CT scan revealed degenerative joint disease and degenerative disk disease and ankylosis of sacroiliac joints, typical of chronic sacroiliitis. In the thoracic spine, there is degenerative disk disease and facet arthritis, mainly in the lower thoracic area. Chest x-ray failed to reveal any acute abnormalities. Same thing, CT scan of the brain failed to reveal any acute abnormality. PHYSICAL EXAMINATION: On physical examination today revealed a middle-aged male. He is alert, oriented to time, place, person and circumstance and follows commands appropriately. Moves all 4 extremities voluntarily, where he had 4/5 to 4+/5 grade muscle strength with relatively increased weakness in hip abductors. Deep tendon reflexes are decreased overall with absent knee and ankle jerks and he had equal perception of touch and pinprick sensation bilaterally. He is independent with bed mobility and transfers and he walked using a roller walker. He tried to walk too fast and narrow gait that makes him prone to falls despite using a roller walker. He had skin abrasion over his left elbow. Other than that, his skin is intact. ASSESSMENT: A middle-aged male with ataxia from chronic ethanol abuse with associated peripheral neuropathy in a patient with known coronary artery disease, anxiety, depression, hyperlipidemia, hypertension, and obesity. RECOMMENDATIONS: Agree with the plans for physical therapy and occupational therapy and transfer to custodial care unit or rehab unit for continued care. He may benefit from assisted living facility transfer after he finished custodial care unit stay. He will keep on having the balance problems, which I suspect he should continue having. Right now, he is not safe to return home to live by himself. Dr. Levin, I appreciate asking me to participate in the care of this interesting patient. I will be glad to follow him with you on as needed basis for his rehabilitation. MANNY ZHONG MD DR: JOHNSON/artemio JOB#: [id number] / [id number] NEIDA Perez MD
[2019-04-10 07:15] VITALS: BP 143/88
[2019-04-10] MEDS: NICOTINE 14MG PATCH. TD SCH (08:33)
[2019-04-10] MEDS: LATANOPROST 0.005% OPHTH SOLUTION 2.5ML BOTTLE. OU SCH (08:33)
[2019-04-10] MEDS: LOSARTAN POTASSIUM 25 MG TABLET. PO SCH (08:34)
[2019-04-10] MEDS: PANTOPRAZOLE 40 MG TABLET.DR. PO SCH (08:34)
[2019-04-10] MEDS: FENOFIBRATE,MICRONIZED 134 MG CAPSULE PO SCH (08:34)
[2019-04-10] MEDS: CLOPIDOGREL BISULFATE 75 MG TABLET PO SCH (08:34)
[2019-04-10] MEDS: oxyCODONE ER 10 MG TAB.ER.12H PO SCH (08:34)
[2019-04-10] MEDS: THIAMINE 100 MG TABLET. PO SCH (08:35)
[2019-04-10] MEDS: SUCRALFATE 1 GM TABLET. PO SCH ×2 (08:35→14:47)
--- NOTE | 2019-04-10 09:22 | PDOC ---
PROGRESS NOTES Subjective Subjective He c/o constipation and weakness. Objective Objective Vital Signs Date Time Temp Pulse Resp B/P (MAP) Pulse Ox O2 Delivery O2 Flow Rate FiO2 04/10/19 08:34 96 Room Air 04/10/19 08:34 90 143/88 04/10/19 07:15 97.4 18 97.4 Intake and Output 04/10/19 07:00 Intake Total 940 ml Output Total 1750 ml Balance -810 ml Intake Oral 940 ml Output Urine Total 1750 ml Physical Exam Physical Exam He is supine in bed and he is alert and in no acute distress and he continues with ataxia and he is not safe to get up with walker by himself. Assessment Assessment Problems Medical Problems: (1) Alcohol abuse Status: Acute (2) Altered gait Status: Acute (3) Elevated brain natriuretic peptide (BNP) level Status: Acute (4) Hypokalemia Status: Acute (5) Weakness Status: Acute Plan Plan of Care Agree withplans for transfer to SNF and he may need to live in an assisted living facility or NH as he had stairs to handle at home. Comment Review of Relevant I have reviewed the following items [place] (where applicable) has been applied. Medications Current Medications Sodium Chloride 500 ml @ 500 mls/hr 1X ONCE IV Last administered on 04/06/19at 15:13; Start 04/06/19 at 14:45; Stop 04/06/19 at 15:44; Status DC Thiamine HCl 100 mg/Dextrose 51 ml @ 102 mls/hr 1X ONCE IV Last administered on 04/06/19at 16:25; Start 04/06/19 at 15:00; Stop 04/06/19 at 15:29; Status DC Potassium Chloride (Klor-Con) 40 meq 1X ONCE PO Last administered on 04/06/19at 16:34; Start 04/06/19 at 16:30; Stop 04/06/19 at 16:31; Status DC Aspirin (Children'S Aspirin) 324 mg 1X ONCE PO Last administered on 04/06/19at 16:33; Start 04/06/19 at 16:30; Stop 04/06/19 at 16:31; Status DC Potassium Chloride/Water 100 ml @ 100 mls/hr Q1H IV Last administered on 04/06/19at 19:15; Start 04/06/19 at 17:00; Stop 04/06/19 at 18:59; Status DC Alprazolam (Xanax) 1 mg TID PRN PO ANXIETY / AGITATION Last administered on 04/09/19 21:35; Start 04/06/19 at 20:30 Clopidogrel Bisulfate (Plavix) 75 mg DAILY PO Last administered on 04/10/19 08:34; Start 04/07/19 at 09:00 Acetaminophen/ Hydrocodone Bitart (Lortab 7.5/325) 1 tab Q6HRS PRN PO PAIN Last administered on 04/09/19 18:37; Start 04/06/19 at 20:30 Hydrocortisone Acetate (Anucort-Hc) 25 mg Q12HR PRN [place] hemorrhoids; Start 04/06/19 at 20:30 Latanoprost (Xalatan) 1 drop QHS OU Last administered on 04/06/19 21:41; Start 04/06/19 at 21:00; Stop 04/07/19 at 00:53; Status DC Losartan Potassium (Cozaar) 50 mg DAILY PO Last administered on 04/10/19 08:34; Start 04/07/19 at 09:00 Sucralfate (Carafate) 1 gm QIDPMEDS PO Last administered on 04/10/19 08:35; Start 04/06/19 at 22:00 Dorzolamide HCl (Trusopt) 1 drop QHS OU Last administered on 04/09/19 21:37; Start 04/06/19 at 21:00 Fenofibrate (Lofibra) 134 mg DAILY PO Last administered on 04/10/19 08:34; Start 04/07/19 at 09:00 Nifedipine (Procardia Xl) 30 mg QHS PO ; Start 04/06/19 at 21:00; Stop 04/06/19 at 20:38; Status DC Pantoprazole Sodium (Protonix) 40 mg DAILYAC PO Last administered on 04/10/19 08:34; Start 04/07/19 at 07:30 Ondansetron HCl (Zofran Odt) 4 mg PRN Q6HRS PRN PO NAUSEA/VOMITING; Start 04/06/19 at 20:45 Oxycodone HCl (OxyCONTIN) 20 mg Q12HR PO Last administered on 04/10/19 08:34; Start 04/06/19 at 21:00 Nifedipine (Procardia Xl) 90 mg QHS PO Last administered on 04/09/19at 21:35; Start 04/06/19 at 21:00 Timolol Maleate (Timoptic 0.5% Oph) 1 drop QHS OU Last administered on 04/09/19at 21:36; Start 04/06/19 at 21:00 Latanoprost (Xalatan) 1 drop BID OU Last administered on 04/10/19at 08:33; Start 04/07/19 at 09:00 Nicotine (Nicoderm Cq 14mg) 1 patch DAILY TD Last administered on 04/10/19at 08:33; Start 04/07/19 at 11:00 Potassium Chloride (Klor-Con) 40 meq 1X ONCE PO Last administered on 04/07/19at 11:44; Start 04/07/19 at 11:15; Stop 04/07/19 at 11:16; Status DC Thiamine HCl 500 mg/Dextrose 55 ml @ 102 mls/hr 1X ONCE IV Last administered on 04/07/19at 18:06; Start 04/07/19 at 16:30; Stop 04/07/19 at 17:02; Status DC Thiamine Mononitrate (Vitamin B-1) 100 mg DAILY PO Last administered on 04/10/19at 08:35; Start 04/08/19 at 09:00 Active Scripts Active Hydrocodone-Apap 7.5-325 (Hydrocodone Bit/Acetaminophen) 1 Each Tablet 1 Tab PO Q6HRS PRN Reported Omeprazole 40 Mg Capsule.dr 40 Mg PO DAILY Cosopt Eye Drops (Dorzolamide Hcl/Timolol Maleat) 10 Ml Drops 10 Ml OP HS Latanoprost 2.5 Ml Drops 2.5 Ml OP BID Hydrocortisone Acetate 25 Mg Supp.rect 25 Mg [place] Q12HR PRN Ondansetron Hcl 4 Mg Tablet 4 Mg PO Q6HRS PRN Oxycontin (Oxycodone HCl) 20 Mg Tab.er.12h 20 Mg PO BID PRN Carafate (Sucralfate) 1 Gm Tablet 1 Tab PO QID 30 Days Xanax (Alprazolam) 1 Mg Tablet 1 Tab PO TID PRN Procardia Xl (Nifedipine) 90 Mg Tab.er.24 1 Tab PO QHS Fenofibrate (Fenofibrate Nanocrystallized) 145 Mg Tablet 1 Tab PO DAILY Clopidogrel (Clopidogrel Bisulfate) 75 Mg Tablet 1 Tab PO DAILY Losartan Potassium 50 Mg Tablet 50 Mg PO DAILY Vitals/I & O Vital Sign - Last 24 Hours 04/09/19 04/09/19 04/09/19 04/09/19 11:00 14:49 14:59 18:37 Temp 98.0 98.0 98.0 98.0 Pulse 85 63 Resp 16 18 B/P (MAP) 128/82 (97) 132/74 (93) Pulse Ox 94 94 90 90 O2 Delivery Room Air Room Air Room Air Room Air 04/09/19 04/09/19 04/09/19 04/09/19 19:36 19:37 20:00 21:34 Temp 98.7 98.7 Pulse 86 Resp 18 18 B/P (MAP) 157/79 (105) Pulse Ox 95 90 O2 Delivery Room Air Room Air Room Air 04/09/19 04/09/19 04/10/19 04/10/19 21:35 23:25 01:34 03:39 Temp 98.9 98.1 98.9 98.1 Pulse 63 80 67 Resp 18 18 B/P (MAP) 132/74 136/69 (91) 152/83 (106) Pulse Ox 93 93 94 O2 Delivery Room Air Room Air Room Air 04/10/19 04/10/19 04/10/19 04/10/19 07:15 08:00 08:34 08:34 Temp 97.4 97.4 Pulse 90 90 Resp 18 B/P (MAP) 143/88 (106) 143/88 Pulse Ox 96 96 O2 Delivery Room Air Room Air Room Air Intake and Output 04/09/19 04/09/19 04/10/19 15:00 23:00 07:00 Intake Total 200 ml 300 ml 440 ml Output Total 1550 ml 200 ml Balance -1350 ml 100 ml 440 ml MANNY ZHONG MD Apr 10, 2019 09:22
[2019-04-10] MEDS ORDERED: BISACODYL 10 MG SUPP.RECT. PR PRN (09:45)
[2019-04-10] MEDS ORDERED: DOCUSATE SODIUM 283 MG/5 ML ENEMA. PR PRN (09:45)
[2019-04-10 10:04] LABS: ALBUMIN 2.8 g/dL (3.4-5.0); ALBUMIN/GLOBULIN RATIO 0.8 (1.0-1.7); CALCIUM 8.5 mg/dL (8.5-10.1); CREATININE 0.8 mg/dL (0.7-1.3); GFR 97.6; POTASSIUM 3.4 mmol/L (3.5-5.1); TOTAL BILIRUBIN 1.2 mg/dL (0.2-1.0); TOTAL PROTEIN 6.1 g/dL (6.4-8.2)
[2019-04-10] MEDS ORDERED: SENNOSIDES/DOCUSATE 8.6/50MG TABLET. PO SCH (10:30)
[2019-04-10] MEDS ORDERED: BISACODYL 5 MG TABLET.DR. PO SCH (10:30)
[2019-04-10 11:04] VITALS: BP 177/71
--- NOTE | 2019-04-10 11:18 | PDOC ---
[employer] PROGRESS NOTE Chief Complaint Chief Complaint Severe weakness of undetermined etiology Alcoholism, CAD, anxiety, depression, hyperlipidemia, hypertension, AAA at 3.5 cm, retinopathy, hip replacement, tonsillectomy, cardiac stents, carotid stents, retinal surgery, previous tobacco abuse. History of Present Illness History of Present Illness [id number] Patient seen and examined He is resting with no apparent distress I reviewed neurology's note Appreciate neurology input Discussed with RN 04-09-2019 Patient Seen and Examined. Discussed Neurological findings, Discussed Alcohol use effects on the patient's body including alcohol neuropathy being experienced. Will Start EtOH withdrawal protocol. Pt showed interest in being placed in a [facility] home. Will talk with social work towards that placement. Discharge possibly tomorrow, disposition pending. 04-10-2019 Patient Seen and Examined. Educated patient about the effects that alcohol can have on his body, reinforced that there is help available if needed. Continue use of Vitamins at home, Consider outpatient PT to help with weakness in lower extremities. The plan is to discharge to rehab as early as today. Vitals/I&O Vitals/I&O: Vital Signs Date Time Temp Pulse Resp B/P (MAP) Pulse Ox O2 Delivery O2 Flow Rate FiO2 04/10/19 08:34 96 Room Air 04/10/19 08:34 90 143/88 04/10/19 07:15 97.4 18 97.4 I & O 04/09/19 04/09/19 04/10/19 15:00 23:00 07:00 Intake Total 200 ml 300 ml 440 ml Output Total 1550 ml 200 ml Balance -1350 ml 100 ml 440 ml Physical Exam General: No acute distress Heart: Regular rate, Normal S1, Normal S2, No murmurs Lungs: Clear Abdomen: Normal bowel sounds, Soft Extremities: No clubbing, No cyanosis Skin: No rashes Labs Labs: Laboratory Tests Test 04/10/19 09:30 Sodium Level 143 mmol/L (136-145) Potassium Level 3.4 mmol/L (3.5-5.1) Chloride Level 105 mmol/L (98-107) Carbon Dioxide Level 32 mmol/L (21-32) Anion Gap 6 (6-14) Blood Urea Nitrogen 2 mg/dL (8-26) Creatinine 0.8 mg/dL (0.7-1.3) Estimated GFR (Cockcroft-Gault) 97.6 BUN/Creatinine Ratio 3 (6-20) Glucose Level 131 mg/dL (70-99) Calcium Level 8.5 mg/dL (8.5-10.1) Total Bilirubin 1.2 mg/dL (0.2-1.0) Aspartate Amino Transf (AST/SGOT) 63 U/L (15-37) Alanine Aminotransferase (ALT/SGPT) 36 U/L (16-63) Alkaline Phosphatase 86 U/L (46-116) Total Protein 6.1 g/dL (6.4-8.2) Albumin 2.8 g/dL (3.4-5.0) Albumin/Globulin Ratio 0.8 (1.0-1.7) Assessment and Plan Assessmemt and Plan Problems Medical Problems: (1) Alcohol abuse Status: Acute (2) Altered gait Status: Acute (3) Elevated brain natriuretic peptide (BNP) level Status: Acute (4) Hypokalemia Status: Acute (5) Weakness Status: Acute Plan: 1. Continue current medical therapy until discharged 2. Provide patient with options for alcohol cessation programs. 3. Provide an Rx for physical therapy in the out patient setting. 4. Encourage healthy, nutrient rich diet. 5. Discharge Today to Rehab Comment Review of Relevant I have reviewed the following items [place] (where applicable) has been applied. KENJI TATE III DO Apr 10, 2019 11:18
--- NOTE | 2019-04-10 11:19 | PDOC ---
PROGRESS NOTES Assessment Problems Medical Problems: (1) Alcohol abuse Status: Acute (2) Altered gait Status: Acute (3) Elevated brain natriuretic peptide (BNP) level Status: Acute (4) Hypokalemia Status: Acute (5) Weakness Status: Acute Left atypical facial pain, failure on numerous medications and nerve blocks from Dr. Nguyễn. 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 Chronic back pain worse for the past several days. I last saw him on 04/04 and reluctantly started him on OxyContin after consultation with Dr. Nguyễn, pain management anesthesiologist. 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 Gait instability. Cervical-spine stenosis. Alcohol intoxication, chronic alcoholism. Hypokalemia, K+ 2.6 CAD. HTN. HLD. AAA. S/p cardiac stents. S/p illic stent, cannot have MRI. Obesity. Plan Additional lab orders regarding neuropathy Vit B1 ASA 162 mg daily. Treat medical diseases. Dr. Shahid's neurosurgery consult appreciated, I agree no need for surgery Patient education for alcohol abstinence. OT/PT. Continue to follow up as outpatient with Dr. Nguyễn, pain management Will need inpatient long term Subjective Feels too weak to go home Objective Vital Signs Date Time Temp Pulse Resp B/P (MAP) Pulse Ox O2 Delivery O2 Flow Rate FiO2 04/10/19 08:34 96 Room Air 04/10/19 08:34 90 143/88 04/10/19 07:15 97.4 18 97.4 Intake and Output 04/10/19 07:00 Intake Total 940 ml Output Total 1750 ml Balance -810 ml Intake Oral 940 ml Output Urine Total 1750 ml PHYSICAL EXAM Alert. Oriented to time, place and person. PERRL. EOMI. CN: no focal findings. Muscle tone: normal. Muscle strength: 4+/5 DTR: 1+ Plantar reflex: flexor Gait: not examined in bed. Sensory exam: no abnormal findings. No cerebellar signs elicited. Review of Relevant I have reviewed the following items [place] (where applicable) has been applied. Labs Laboratory Tests Test 04/10/19 09:30 Sodium Level 143 mmol/L (136-145) Potassium Level 3.4 mmol/L (3.5-5.1) Chloride Level 105 mmol/L (98-107) Carbon Dioxide Level 32 mmol/L (21-32) Anion Gap 6 (6-14) Blood Urea Nitrogen 2 mg/dL (8-26) Creatinine 0.8 mg/dL (0.7-1.3) Estimated GFR (Cockcroft-Gault) 97.6 BUN/Creatinine Ratio 3 (6-20) Glucose Level 131 mg/dL (70-99) Calcium Level 8.5 mg/dL (8.5-10.1) Total Bilirubin 1.2 mg/dL (0.2-1.0) Aspartate Amino Transf (AST/SGOT) 63 U/L (15-37) Alanine Aminotransferase (ALT/SGPT) 36 U/L (16-63) Alkaline Phosphatase 86 U/L (46-116) Total Protein 6.1 g/dL (6.4-8.2) Albumin 2.8 g/dL (3.4-5.0) Albumin/Globulin Ratio 0.8 (1.0-1.7) Laboratory Tests Test 04/10/19 09:30 Sodium Level 143 mmol/L (136-145) Potassium Level 3.4 mmol/L (3.5-5.1) Chloride Level 105 mmol/L (98-107) Carbon Dioxide Level 32 mmol/L (21-32) Anion Gap 6 (6-14) Blood Urea Nitrogen 2 mg/dL (8-26) Creatinine 0.8 mg/dL (0.7-1.3) Estimated GFR (Cockcroft-Gault) 97.6 BUN/Creatinine Ratio 3 (6-20) Glucose Level 131 mg/dL (70-99) Calcium Level 8.5 mg/dL (8.5-10.1) Total Bilirubin 1.2 mg/dL (0.2-1.0) Aspartate Amino Transf (AST/SGOT) 63 U/L (15-37) Alanine Aminotransferase (ALT/SGPT) 36 U/L (16-63) Alkaline Phosphatase 86 U/L (46-116) Total Protein 6.1 g/dL (6.4-8.2) Albumin 2.8 g/dL (3.4-5.0) Albumin/Globulin Ratio 0.8 (1.0-1.7) Medications Current Medications Sodium Chloride 500 ml @ 500 mls/hr 1X ONCE IV Last administered on 04/06/19at 15:13; Start 04/06/19 at 14:45; Stop 04/06/19 at 15:44; Status DC Thiamine HCl 100 mg/Dextrose 51 ml @ 102 mls/hr 1X ONCE IV Last administered on 04/06/19 16:25; Start 04/06/19 at 15:00; Stop 04/06/19 at 15:29; Status DC Potassium Chloride (Klor-Con) 40 meq 1X ONCE PO Last administered on 04/06/19 16:34; Start 04/06/19 at 16:30; Stop 04/06/19 at 16:31; Status DC Aspirin (Children'S Aspirin) 324 mg 1X ONCE PO Last administered on 04/06/19 16:33; Start 04/06/19 at 16:30; Stop 04/06/19 at 16:31; Status DC Potassium Chloride/Water 100 ml @ 100 mls/hr Q1H IV Last administered on 04/06/19at 19:15; Start 04/06/19 at 17:00; Stop 04/06/19 at 18:59; Status DC Alprazolam (Xanax) 1 mg TID PRN PO ANXIETY / AGITATION Last administered on 04/09/19 21:35; Start 04/06/19 at 20:30 Clopidogrel Bisulfate (Plavix) 75 mg DAILY PO Last administered on 04/10/19 08:34; Start 04/07/19 at 09:00 Acetaminophen/ Hydrocodone Bitart (Lortab 7.5/325) 1 tab Q6HRS PRN PO PAIN Last administered on 04/09/19 18:37; Start 04/06/19 at 20:30 Hydrocortisone Acetate (Anucort-Hc) 25 mg Q12HR PRN [place] hemorrhoids; Start 04/06/19 at 20:30 Latanoprost (Xalatan) 1 drop QHS OU Last administered on 04/06/19 21:41; Start 04/06/19 at 21:00; Stop 04/07/19 at 00:53; Status DC Losartan Potassium (Cozaar) 50 mg DAILY PO Last administered on 04/10/19 08:34; Start 04/07/19 at 09:00 Sucralfate (Carafate) 1 gm QIDPMEDS PO Last administered on 04/10/19 08:35; Start 04/06/19 at 22:00 Dorzolamide HCl (Trusopt) 1 drop QHS OU Last administered on 04/09/19 21:37; Start 04/06/19 at 21:00 Fenofibrate (Lofibra) 134 mg DAILY PO Last administered on 04/10/19 08:34; Start 04/07/19 at 09:00 Nifedipine (Procardia Xl) 30 mg QHS PO ; Start 04/06/19 at 21:00; Stop 04/06/19 at 20:38; Status DC Pantoprazole Sodium (Protonix) 40 mg DAILYAC PO Last administered on 04/10/19 08:34; Start 04/07/19 at 07:30 Ondansetron HCl (Zofran Odt) 4 mg PRN Q6HRS PRN PO NAUSEA/VOMITING; Start 04/06/19 at 20:45 Oxycodone HCl (OxyCONTIN) 20 mg Q12HR PO Last administered on 04/10/19 08:34; Start 04/06/19 at 21:00 Nifedipine (Procardia Xl) 90 mg QHS PO Last administered on 04/09/19 21:35; Start 04/06/19 at 21:00 Timolol Maleate (Timoptic 0.5% Ophth) 1 drop QHS OU Last administered on 04/09/19 21:36; Start 04/06/19 at 21:00 Latanoprost (Xalatan) 1 drop BID OU Last administered on 04/10/19 08:33; Start 04/07/19 at 09:00 Nicotine (Nicoderm Cq 14mg) 1 patch DAILY TD Last administered on 04/10/19 08:33; Start 04/07/19 at 11:00 Potassium Chloride (Klor-Con) 40 meq 1X ONCE PO Last administered on 04/07/19at 11:44; Start 04/07/19 at 11:15; Stop 04/07/19 at 11:16; Status DC Thiamine HCl 500 mg/Dextrose 55 ml @ 102 mls/hr 1X ONCE IV Last administered on 04/07/19at 18:06; Start 04/07/19 at 16:30; Stop 04/07/19 at 17:02; Status DC Thiamine Mononitrate (Vitamin B-1) 100 mg DAILY PO Last administered on 04/10/19at 08:35; Start 04/08/19 at 09:00 Senna/Docusate Sodium (Senna Plus) 1 tab BID PO ; Start 04/10/19 at 10:30 Bisacodyl (Dulcolax Tab) 10 mg DAILY PO ; Start 04/10/19 at 10:30 Bisacodyl (Dulcolax Supp) 10 mg PRN DAILY PRN [place] CONSTIPATION; Start 04/10/19 at 09:45 Docusate Sodium (Enemeez) 283 mg PRN DAILY PRN [place] CONSTIPATION 2ND CHOICE; Start 04/10/19 at 09:45 Active Scripts Active Hydrocodone-Apap 7.5-325 (Hydrocodone Bit/Acetaminophen) 1 Each Tablet 1 Tab PO Q6HRS PRN Reported Omeprazole 40 Mg Capsule.dr 40 Mg PO DAILY Cosopt Eye Drops (Dorzolamide Hcl/Timolol Maleat) 10 Ml Drops 10 Ml OP HS Latanoprost 2.5 Ml Drops 2.5 Ml OP BID Hydrocortisone Acetate 25 Mg Supp.rect 25 Mg [place] Q12HR PRN Ondansetron Hcl 4 Mg Tablet 4 Mg PO Q6HRS PRN Oxycontin (Oxycodone HCl) 20 Mg Tab.er.12h 20 Mg PO BID PRN Carafate (Sucralfate) 1 Gm Tablet 1 Tab PO QID 30 Days Xanax (Alprazolam) 1 Mg Tablet 1 Tab PO TID PRN Procardia Xl (Nifedipine) 90 Mg Tab.er.24 1 Tab PO QHS Fenofibrate (Fenofibrate Nanocrystallized) 145 Mg Tablet 1 Tab PO DAILY Clopidogrel (Clopidogrel Bisulfate) 75 Mg Tablet 1 Tab PO DAILY Losartan Potassium 50 Mg Tablet 50 Mg PO DAILY Vitals/I & O Vital Sign - Last 24 Hours 04/09/19 04/09/19 04/09/19 04/09/19 14:49 14:59 18:37 19:36 Temp 98.0 98.7 98.0 98.7 Pulse 63 86 Resp 18 18 B/P (MAP) 132/74 (93) 157/79 (105) Pulse Ox 94 90 90 95 O2 Delivery Room Air Room Air Room Air Room Air 04/09/19 04/09/19 04/09/19 04/09/19 19:37 20:00 21:34 21:35 Pulse 63 Resp 18 B/P (MAP) 132/74 Pulse Ox 90 O2 Delivery Room Air Room Air 04/09/19 04/10/19 04/10/19 04/10/19 23:25 01:34 03:39 07:15 Temp 98.9 98.1 97.4 98.9 98.1 97.4 Pulse 80 67 90 Resp 18 18 18 B/P (MAP) 136/69 (91) 152/83 (106) 143/88 (106) Pulse Ox 93 93 94 96 O2 Delivery Room Air Room Air Room Air Room Air 04/10/19 04/10/19 04/10/19 08:00 08:34 08:34 Pulse 90 B/P (MAP) 143/88 Pulse Ox 96 O2 Delivery Room Air Room Air Intake and Output 04/09/19 04/09/19 04/10/19 15:00 23:00 07:00 Intake Total 200 ml 300 ml 440 ml Output Total 1550 ml 200 ml Balance -1350 ml 100 ml 440 ml LEV HENRY MD Apr 10, 2019 11:19
--- NOTE | 2019-04-10 11:19 | SNU/HH DC ---
DISCHARGE ORDERS DISCHARGE INFORMATION: FINAL DIAGNOSIS Problems Medical Problems: (1) Alcohol abuse Status: Acute (2) Altered gait Status: Acute (3) Elevated brain natriuretic peptide (BNP) level Status: Acute (4) Hypokalemia Status: Acute (5) Weakness Status: Acute CONDITION ON DISCHARGE: Stable CODE STATUS: Code Status: Full [facility]: SNF STAY <30 DAYS: Yes HOSPICE: HOSPICE: No HOSPICE EVAL & TREAT: No LTAC: ADMIT TO LTAC: No POST DISCHARGE ORDERS: ACTIVITY ORDERS: Activity as tolerated DIET AFTER DISCHARGE: Cardiac TREATMENT/EQUIPMENT ORDERS: Physical Therapy For: Evalulation/Treatment Occupational Therapy For: Evaluation/Treatment Speech Language Pathology For: Evaluation/Treatment DISCHARGE MEDICATIONS: Home Meds Active Scripts Hydrocodone Bit/Acetaminophen (HYDROCODONE-APAP 7.5-325 ) 1 Each Tablet, 1 TAB PO Q6HRS PRN for PAIN, #20 TAB 0 Refills Prov:KAYLEE MATTHEWS [employer]UMMED [employer] PRESS OPERATOR 12/15/17 Reported Medications Omeprazole (OMEPRAZOLE) 40 Mg Capsule.dr, 40 MG PO DAILY for gerd 04/06/19 Dorzolamide Hcl/Timolol Maleat (COSOPT EYE DROPS) 10 Ml Drops, 10 ML OP HS for glaucoma 04/06/19 Latanoprost (LATANOPROST) 2.5 Ml Drops, 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 04/06/19 Hydrocortisone Acetate (HYDROCORTISONE ACETATE) 25 Mg Supp.rect, 25 MG [place] Q12HR PRN for hemorrhoids 04/06/19 Ondansetron Hcl (ONDANSETRON HCL) 4 Mg Tablet, 4 MG PO Q6HRS PRN for NAUSEA 04/06/19 Oxycodone Hcl (OXYCONTIN) 20 Mg Tab.er.12h, 20 MG PO BID PRN for PAIN 04/06/19 Sucralfate (CARAFATE) 1 Gm Tablet, 1 TAB PO QID for gerd for 30 Days, #120 TAB 0 Refills 04/04/19 Alprazolam (XANAX) 1 Mg Tablet, 1 TAB PO TID PRN for ANXIETY / AGITATION, #90 TAB 07/07/16 Nifedipine (PROCARDIA XL) 90 Mg Tab.er.24, 1 TAB PO QHS, #30 TAB 5 Refills 07/07/16 Fenofibrate Nanocrystallized (FENOFIBRATE) 145 Mg Tablet, 1 TAB PO DAILY, #30 TAB 5 Refills 07/07/16 Clopidogrel Bisulfate (CLOPIDOGREL) 75 Mg Tablet, 1 TAB PO DAILY, #90 TAB 1 Refill 07/07/16 Losartan Potassium (LOSARTAN POTASSIUM) 50 Mg Tablet, 50 MG PO DAILY, TAB 07/07/16 Discontinued Reported Medications Omeprazole (OMEPRAZOLE) 10 Mg Capsule.dr, 10 MG PO DAILY for gerd, CAP 04/04/19 Metoprolol Tartrate (METOPROLOL TARTRATE) 50 Mg Tablet, 1 TAB PO DAILY for htn, #60 TAB 5 Refills 08/31/18 Simvastatin (SIMVASTATIN) 40 Mg Tablet, 1 TAB PO QHS, #30 TAB 5 Refills 07/07/16 KENJI TATE III DO Apr 10, 2019 11:18
[2019-04-10] MEDS: ALPRAZolam 1 MG TABLET PO PRN (11:53)
[2019-04-10] MEDS ORDERED: NICOTINE 14MG PATCH. TD ONE (12:00)
[2019-04-10] MEDS: HYDROcodone/APAP 7.5/325MG 1 TAB TABLET PO PRN (14:47)
--- NOTE | 2019-04-11 13:35 | DS ---
DATE OF DISCHARGE: 04/10/2019 ADMISSION DIAGNOSIS: Hypokalemia, alcoholism, hypertension and weakness. DISCHARGE DIAGNOSIS: Alcoholic neuropathy. HOSPITAL COURSE: The patient is a pleasant 63-year-old male who drinks too much. He was hypokalemic and very weak and consulted Dr. Armstrong and Neurology. We did physical therapy, occupational therapy and alcohol withdrawal protocol. Dr. Armstrong feels this is most likely alcoholic neuropathy, which is probably not reversible. The patient wants to go to long-term care. We have arranged group home until he can arranges long-term care. DISPOSITION: Skilled. ACTIVITY: As tolerated. DIET: Low sodium. MEDICATIONS: Please see MRAD. TOTAL TIME: 33 minutes. JULISSAL Bc TATE DO DR: RAJWINDER/artemio JOB#: [id number] / [id number]
== END 2019-04-10 16:12 | DRG 74 ==
LOC: ER 14:39 → UNDOADMOB 16:30 → 6 SOUTH 16:30 → INTOOBSV 04-07 23:23 → OBSVTOIN 04-07 23:23 → 6 SOUTH 04-10 16:06
PROVIDERS: ADMIT Internal Medicine; ATTEND Internal Medicine
DX: G62.1 Alcoholic polyneuropathy (principal); E87.6 Hypokalemia; E66.9 Obesity, unspecified; E78.00 Pure hypercholesterolemia, unspecified; R53.1 Weakness; E78.5 Hyperlipidemia, unspecified; F10.229 Alcohol dependence with intoxication, unspecified; F32.9 Major depressive disorder, single episode, unspecified; F41.9 Anxiety disorder, unspecified; G50.1 Atypical facial pain; G89.29 Other chronic pain; H35.00 Unspecified background retinopathy; I10 Essential (primary) hypertension; I25.10 Atherosclerotic heart disease of native coronary artery without angina pectoris; K59.00 Constipation, unspecified; M47.9 Spondylosis, unspecified; M48.02 Spinal stenosis, cervical region; M48.061 Spinal stenosis, lumbar region without neurogenic claudication; M51.34 Other intervertebral disc degeneration, thoracic region; Z79.82 Long term (current) use of aspirin; Z81.1 Family history of alcohol abuse and dependence; Z87.891 Personal history of nicotine dependence; Z95.5 Presence of coronary angioplasty implant and graft; Z96.649 Presence of unspecified artificial hip joint; Z68.33 Body mass index [BMI] 33.0-33.9, adult
CPT/HCPCS: 36415; 70450; 71045; 72125; 72128; 72131; 80048; 80053; 81001; 82525; 82550; 82607; 83874; 83880; 84443; 84484; 85025; 93005; 96361; 96365; 99285; G0378; G0379; G0480; J3411; J3480; J7040; J7060; 97110; 97530; 97535

== ENCOUNTER → 2019-06-25 | Outpatient (CLI) | payer MEDICARE ==
[~2019-06-25] MED LIST changes: +DORZ10DR21 OP; +HYDR25SU3 PR; +IOHEXOL 300 MG/ML 50 ML VIAL. IJ ONE; +LATA2.5D3 OP; +OMEP40CA45 PO; +ONDA-84 PO; +OXYC20TA34 PO
[2019-06-25 11:41] VITALS: BP 165/85
--- NOTE | 2019-06-25 12:04 | NUR ---
pt denies any new numbness in legs. tolerating po well. denies any headache. call placed to him transport person. they have to drop someone elsewhere and they will then get him. reviewed d/c instructions with pt. and notified him of the pick- pt taken to ER waiting room where his facility will pick him up
--- NOTE | 2019-06-25 12:14 | RAD ---
EXAMINATION: MYELOGRAM TWO LEVEL W/ INJ, 06/25/2019 9:30 AM CLINICAL INDICATION: Cervical and thoracic stenosis. COMPARISON: CT lumbar spine 04/07/2019 FINDINGS/TECHNIQUE: The purpose of the procedure, and risks and benefits including bleeding, infection, allergic reaction, nerve root damage, headaches, and CSF leak were explained to the patient and written informed consent was obtained. A timeout was performed. Initial lateral view of the lumbar spine was obtained for planning purposes. The patient was then placed prone on the fluoroscopy table and the L2-L3 level localized. The skin overlying L2-L3 was marked with a pen and then sterilely prepped and draped. 1% lidocaine was used for local anesthesia. A 22-gauge 3.5" spinal needle was then advanced into the thecal sac until clear CSF was returned. Subsequently, 10 mL Omnipaque 300 contrast was injected into the thecal sac. The needle was removed and skin cleansed compatible with a Band-Aid. The patient was tilted to aid in distribution of contrast to the cervical and thoracic levels. The patient tolerated the procedure well and was sent to CT in stable condition. Total fluoroscopic time was 0.9 seconds. 8 images acquired. IMPRESSION: Technically successful, fluoroscopically guided cervical and thoracic myelogram for the purposes of CT. Electronically signed by: Jesise Mccoy MD (06/25/2019 12:11 PM) [id number]
--- NOTE | 2019-06-25 14:31 | RAD ---
EXAMINATION: CT CERVICAL SPINE W/CONTRAST, CT THORACIC SPINE W/CONTRAST, 06/25/2019 12:00 AM CLINICAL INDICATION: Cervical and thoracic stenosis neck and upper back pain. COMPARISON: CT cervical spine 04/08/2019 TECHNIQUE: Axial CT imaging through the cervical and thoracic spine were obtained after intrathecal administration of contrast, performed separately. Sagittal and coronal reformats were obtained. One or more of the following individualized dose reduction techniques were utilized for this examination: 1. Automated exposure control 2. Adjustment of the mA and/or kV according to patient size 3. Use of iterative reconstruction technique. FINDINGS: CERVICAL SPINE: No acute fracture. Alignment is normal. The craniocervical junction and axial intervals are maintained. There are degenerative changes of C1-C2. Mild disc space narrowing with anterior osteophytes and uncovertebral joint proliferation at multiple levels, greatest at C5-C6 and C6-C7. The cervical cord is normal in caliber. Prevertebral soft tissue is normal. There is a vascular stent in the left carotid bifurcation and proximal internal carotid artery with surrounding surgical clips. There are surgical clips in the right neck around the carotid bifurcation. There are a few tiny subcentimeter hypodensities in the thyroid gland. Lung apices are clear. Segmental analysis: C2-C3: Decreased density of contrast in the right lateral recess is favored to be due to suboptimal contrast opacification rather than disc protrusion. No definite disc herniation or canal or foraminal narrowing. Mild facet arthrosis. C3-C4: Decreased density of contrast in the right lateral recess is favored to be due to suboptimal contrast opacification of a thin disc protrusion. No definite disc herniation or canal narrowing. There is uncovertebral joint proliferation and mild facet arthrosis resulting in mild bilateral inferior bony canal narrowing. C4-C5: Small disc osteophyte complex flattens the ventral CSF space and results in mild central narrowing. No foraminal narrowing. [id number] facet arthrosis. C5-C6: There is a disc osteophyte complex and uncovertebral joint proliferation flattening the ventral CSF space, resulting in moderate or mild to moderate canal narrowing. Uncovertebral joint proliferation and mild facet arthrosis results in moderate to severe bilateral foraminal narrowing. C6-C7: There is a disc osteophyte complex with extensive uncovertebral joint proliferation. This results in moderate or mild to moderate canal narrowing and moderate to severe right and moderate left foraminal narrowing. There is moderate bilateral facet arthrosis. C7-T1: No disc herniation or canal or foraminal narrowing. THORACIC SPINE: No acute fracture. Alignment is normal. There is mild disc space narrowing with anterior osteophytes at T3-T4 through T5-T6. Larger anterior osteophytes at T7-T8 through T9-T10. The conus medullaris terminates at T12-L1. The thoracic cord is normal in caliber. There is calcified atherosclerosis in the thoracic aorta and in the visualized coronary arteries. Visualized portions of the lungs are clear. Paraspinous musculature is normal. Prevertebral soft tissue is normal. Segmental analysis: T1-T2 through T3-T4: No disc herniation or canal or foraminal narrowing. T5-T6: No disc herniation. Moderate facet arthrosis mildly indents the thecal sac posteriorly on the right. No central canal narrowing or foraminal narrowing. T6-T7 and T7-T8: No disc herniation or canal or foraminal narrowing. T8-T9: No disc herniation. Moderate facet arthrosis slightly indenting the thecal sac posteriorly on the right. No central canal narrowing. There is mild right foraminal narrowing. T9-T10: No disc herniation. Moderate facet arthrosis indenting the thecal sac posteriorly on the right and the left, resulting in overall mild canal narrowing. There is at least mild bilateral foraminal narrowing. T10-T11: No disc herniation. Moderate facet arthrosis mildly indenting the thecal sac posteriorly on the right and left, resulting in minimal canal narrowing. No foraminal narrowing. T11-T12: Tiny right foraminal disc protrusion. Moderate facet arthrosis slightly indents the thecal sac posteriorly. No canal narrowing. Mild right foraminal narrowing. T12-L1: No disc herniation or canal or foraminal narrowing. Moderate facet arthrosis. IMPRESSION: 1. Moderate or mild to moderate canal narrowing at C5-C6 due to a disc osteophyte complex with moderate to severe bilateral foraminal narrowing. 2. Moderate or mild to moderate canal narrowing at C6-C7 due to a disc osteophyte complex with moderate to severe right and moderate left foraminal narrowing. 3. Mild degenerative disc disease in the thoracic spine with mild canal narrowing at T9-T10 related to facet arthrosis. 4. Mild bilateral foraminal narrowing at T9-T10 and mild right foraminal narrowing at T8-T9. Electronically signed by: Jessie Mccoy MD (06/25/2019 2:29 PM) [id number]
== END | disposition home or self-care (01) ==
LOC: RAD 12:34
PROVIDERS: ATTEND Neurological Surgery
DX: M48.02 Spinal stenosis, cervical region (principal); M48.04 Spinal stenosis, thoracic region; I25.10 Atherosclerotic heart disease of native coronary artery without angina pectoris; F41.9 Anxiety disorder, unspecified; I10 Essential (primary) hypertension; F32.9 Major depressive disorder, single episode, unspecified; E78.5 Hyperlipidemia, unspecified; E78.00 Pure hypercholesterolemia, unspecified; G89.29 Other chronic pain; E66.9 Obesity, unspecified; Z68.33 Body mass index [BMI] 33.0-33.9, adult; Z79.82 Long term (current) use of aspirin; Z87.891 Personal history of nicotine dependence; Z95.5 Presence of coronary angioplasty implant and graft
CPT/HCPCS: 72126; 72129; 72270; Q9967

== ENCOUNTER → 2020-05-05 | Outpatient (CLI) | payer MEDICARE ==
[2019-06-25 11:41] VITALS: BP 165/85
[~2020-05-05] MED LIST changes: -IOHEXOL 300 MG/ML 50 ML VIAL. IJ ONE
--- NOTE | 2020-05-06 07:29 | RAD ---
XR KNEE 1-2 VIEWS 05/05/2020 2:12 PM INDICATION: Pain in both knees COMPARISON: None available. TECHNIQUE: 2 views of the right and 2 views the left knee are provided. FINDINGS/ IMPRESSION: There is no significant knee joint effusion. There is no acute fracture or dislocation. Mild left med ial femorotibial and patellofemoral joint space narrowing with marginal osteophytosis compatible with mild osteoarthrosis. Joint spaces of the right knee are preserved.. Bone mineralization is within no rmal limits. Regional soft tissues are within normal limits. There is no soft tissue gas or osseous e rosion. No radiopaque foreign body. Electronically signed by: Yisel Douglas MD (05/06/2020 7:26 AM) [id number]
== END | disposition home or self-care (01) ==
LOC: PNCL 14:24
PROVIDERS: ATTEND Anesthesiology
DX: M25.561 Pain in right knee (principal); M25.562 Pain in left knee; M17.0 Bilateral primary osteoarthritis of knee; I25.10 Atherosclerotic heart disease of native coronary artery without angina pectoris; I10 Essential (primary) hypertension; E78.00 Pure hypercholesterolemia, unspecified; K21.9 Gastro-esophageal reflux disease without esophagitis; F41.9 Anxiety disorder, unspecified; F32.9 Major depressive disorder, single episode, unspecified; F17.210 Nicotine dependence, cigarettes, uncomplicated; Z79.899 Other long term (current) drug therapy; Z98.890 Other specified postprocedural states
CPT/HCPCS: 73560-50

== ENCOUNTER → 2020-05-26 | Outpatient (CLI) | payer MEDICARE ==
[2019-06-25 11:41] VITALS: BP 165/85
--- NOTE | 2020-05-26 14:53 | RAD ---
EXAM: Bilateral knees, standing view. HISTORY: Pain. COMPARISON: 05/05/2020 FINDINGS: A standing frontal view both knees obtained. There is mild right and moderate left medial c ompartment and moderate left lateral compartment spurring. There is mild bilateral medial compartment joint space narrowing. There is a joint loose body projecting posterior to the left medial femoral c ondyle. IMPRESSION: 1. Moderate left and mild right knee osteoarthritis. 2. No acute osseous finding. Electronically signed by: Kasia Brice MD (05/26/2020 2:50 PM) [id number]
== END ==
LOC: RAD 14:17
PROVIDERS: ATTEND Physical Medicine & Rehabilitation
DX: M17.0 Bilateral primary osteoarthritis of knee (principal)
CPT/HCPCS: 73565